=== PATIENT | male | born 1970 | race Caucasian/White ===

== ENCOUNTER 2017-07-30 21:01 | Inpatient (IN) | payer SELFPAY, OTHER, MEDICAID ==
[2017-07-30] MEDS: ONDANSETRON 4 MG INJ IV (21:26)
[2017-07-30] MEDS: MAGNESIUM SULFATE 2 GM, MULTIVITAMINS 10 ML, THIAMINE 100 MG, FOLIC ACID 1 MG in SOD CH... IV (21:33)
[2017-07-30 21:51] LABS: ADD MAN DIFF? NO
[2017-07-30 22:01] LABS: BASOPHIL # 0.1 10^3/ul (0.0-0.1); BASOPHILS % 1.8 % (0.0-2.0); EOSINOPHILS % 0.4 % (0.0-7.0); HEMATOCRIT 40.8 % (42.0-52.0); LYMPHOCYTES # 2.4 10^3/ul (0.8-2.9); LYMPHOCYTES % 42.4 % (15.0-51.0); MEAN CORPUSCULAR HEMOGLOBIN 30.8 pg (29.0-33.0); MEAN CORPUSCULAR HGB CONC 34.3 g/dl (32.0-37.0); MEAN CORPUSCULAR VOLUME 89.9 fl (82.0-101.0); MEAN PLATELET VOLUME 9.9 fl (7.4-10.4); MONOCYTE # 0.4 10^3/ul (0.3-0.9); MONOCYTES % 7.9 % (0.0-11.0); NEUTROPHIL # 2.7 10^3/ul (1.6-7.5); NEUTROPHILS % 47.3 % (39.0-77.0); PLATELET COUNT 457 10^3/UL (140-415); RED BLOOD COUNT 4.54 10^6/ul (4.70-6.10)
[2017-07-30 22:01] LABS: WHITE BLOOD COUNT 5.6 10^3/ul (4.8-10.8)
[2017-07-30 22:16] LABS: ALANINE AMINOTRANSFERASE 32 IU/L (13-69); ALBUMIN 4.2 g/dl (3.3-4.9); ALBUMIN/GLOBULIN RATIO 1.27; ALKALINE PHOSPHATASE 141 IU/L (42-121); ANION GAP 25 (8-16); ASPARTATE AMINO TRANSFERASE 44 IU/L (15-46); BLOOD UREA NITROGEN 8 mg/dl (7-20); CALCIUM 8.9 mg/dl (8.4-10.2); CARBON DIOXIDE 24 mmol/L (21-31); CHLORIDE 108 mmol/L (97-110); CREATININE 0.61 mg/dl (0.61-1.24); GLUCOSE 129 mg/dl (70-220); POTASSIUM 3.2 mmol/L (3.5-5.1); SODIUM 154 mmol/L (135-144); TOTAL PROTEIN 7.5 g/dl (6.1-8.1)
[2017-07-30 22:23] LABS: ACETAMINOPHEN < 10.0 ug/ml (10.0-30.0); ETHANOL > 300.0 mg/dl; SALICYLATE < 1.0 mg/dl (5.0-30.0)
[2017-07-30] MEDS: POTASSIUM CHLORIDE (SR) 10 MEQ TAB PO (22:30)
[2017-07-30 23:58] LABS: ADD UMIC YES; UR ASCORBIC ACID NEGATIVE (NEGATIVE); UR BACTERIA FEW /HPF (NONE SEEN); UR BILIRUBIN (Dip) NEGATIVE (NEGATIVE); UR BLOOD (Dip) NEGATIVE (NEGATIVE); UR CLARITY SLIGHTLY CLOUDY (CLEAR); UR COLOR YELLOW (YELLOW); UR GLUCOSE (Dip) NEGATIVE (NEGATIVE); UR KETONES (Dip) NEGATIVE (NEGATIVE); UR LEUKOCYTE ESTERASE (Dip) 1+ Leu/ul (NEGATIVE); UR NITRITE (Dip) NEGATIVE (NEGATIVE); UR RBC 0 /HPF (0-5); UR SPECIFIC GRAVITY (Dip) 1.013 (1.003-1.030); UR TOTAL PROTEIN (Dip) 1+ mg/dl (NEGATIVE); UR UROBILINOGEN (Dip) NEGATIVE (NEGATIVE); UR WBC 8 /HPF (0-5)
[2017-07-31 00:07] LABS: AMPHETAMINE/METHAMPHETAMINE Negative (NEGATIVE); BARBITURATES Negative (NEGATIVE); BENZODIAZEPINES Negative (NEGATIVE); CANNABINOIDS Negative (NEGATIVE); COCAINE Negative (NEGATIVE); OPIATES Negative (NEGATIVE)
[2017-07-31] MEDS ORDERED: FLUMAZENIL 0.5 MG INJ (00:11)
[2017-07-31] MEDS ORDERED: PROPOFOL 100 ML (00:23)
[2017-07-31] MEDS: DIAZEPAM 5 MG/ML SYG IV (00:23)
[2017-07-31] MEDS: PROPOFOL 100 ML IV (00:31)
[2017-07-31] MEDS ORDERED: ACETAMINOPHEN 650MG/20.3ML CUP PO (01:30)
[2017-07-31] MEDS ORDERED: LORAZEPAM 2 MG INJ IV (01:30)
[2017-07-31 02:20] LABS: ADD MAN DIFF? NO
[2017-07-31 02:21] LABS: BASOPHIL # 0.1 10^3/ul (0.0-0.1); BASOPHILS % 1.1 % (0.0-2.0); EOSINOPHILS % 0.1 % (0.0-7.0); HEMATOCRIT 32.3 % (42.0-52.0); LYMPHOCYTES # 1.1 10^3/ul (0.8-2.9); LYMPHOCYTES % 15.7 % (15.0-51.0); MEAN CORPUSCULAR HEMOGLOBIN 31.5 pg (29.0-33.0); MEAN CORPUSCULAR HGB CONC 34.1 g/dl (32.0-37.0); MEAN CORPUSCULAR VOLUME 92.6 fl (82.0-101.0); MEAN PLATELET VOLUME 10.2 fl (7.4-10.4); MONOCYTE # 0.6 10^3/ul (0.3-0.9); NEUTROPHIL # 5.3 10^3/ul (1.6-7.5); NEUTROPHILS % 74.4 % (39.0-77.0); PLATELET COUNT 374 10^3/UL (140-415); RED BLOOD COUNT 3.49 10^6/ul (4.70-6.10); RED CELL DISTRIBUTION WIDTH 16.2 % (11.5-14.5)
[2017-07-31 02:21] LABS: WHITE BLOOD COUNT 7.1 10^3/ul (4.8-10.8)
[2017-07-31] MEDS: FENTAnyl (DRIP) 1000 mcg/100mL 100 ML IV ×2 (02:28→08:25)
[2017-07-31 02:29] LABS: AADO2 Arterial 223.8 mmHg (7.0-24.0); Allen Test ACCEPTAB; Arterial Base Excess -8.7 mmol/L (-3.0-3); Arterial Blood Gas Oxygen Sat 99.5 mmHG (95.0-98.0); Arterial COHb 0.3 % (0.0-3.0); Arterial Fraction of Oxyhgb 98.6 % (93.0-99.0); Arterial HCO3 17.9 mmol/L (22.0-26.0); Arterial MetHb 0.6 % (0.0-1.5); Arterial Total Hemglobin 12.1 g/dl (12.0-18.0); Arterial pCO2 41.2 mmhg (35-45); Blood Gas Low PEEP Setting 0 cmH2O; MODE VENT - AC; Site Right Radial
[2017-07-31] MEDS: CEFTRIAXONE (40 MG/ML) IV SYG IV* (02:37)
[2017-07-31 04:04] LABS: ALANINE AMINOTRANSFERASE 34 IU/L (13-69); ALKALINE PHOSPHATASE 132 IU/L (42-121); ANION GAP 21 (8-16); ASPARTATE AMINO TRANSFERASE 41 IU/L (15-46); BLOOD UREA NITROGEN 7 mg/dl (7-20); CALCIUM 6.6 mg/dl (8.4-10.2); CARBON DIOXIDE 18 mmol/L (21-31); CHLORIDE 116 mmol/L (97-110); CREATININE 0.59 mg/dl (0.61-1.24); GLUCOSE 84 mg/dl (70-220); MAGNESIUM 2.1 mg/dl (1.7-2.5); POTASSIUM 3.1 mmol/L (3.5-5.1); SODIUM 152 mmol/L (135-144)
[2017-07-31 04:05] LABS: ALBUMIN 3.3 g/dl (3.3-4.9); ALBUMIN/GLOBULIN RATIO 1.13; TOTAL PROTEIN 6.2 g/dl (6.1-8.1)
[2017-07-31 04:10] LABS: LACTIC ACID 2.5 mmol/L (0.5-2.0)
[2017-07-31] MEDS: POTASSIUM CHLORIDE 100 ML IVPB ×2 (05:30→07:02)
[2017-07-31 06:04] LABS: HEMOGLOBIN A1C 4.9 % (0-5.9)
[2017-07-31] MEDS ORDERED: DEXTROSE 50% 50 ML SYRINGE (06:23)
[2017-07-31] MEDS ORDERED: D5W + KCL 20 MEQ 1,000 ML IV (06:30)
[2017-07-31] MEDS: DEXTROSE 50% 50 ML SYRINGE IV (06:35)
[2017-07-31] MEDS ORDERED: SUCCINYLCHOLINE CHLORIDE 100 MG/5 ML SYG IV (07:00)
[2017-07-31] MEDS ORDERED: ETOMIDATE 20 MG INJ (07:00)
[2017-07-31] MEDS: PANTOPRAZOLE 40 MG INJ IV (07:04)
[2017-07-31 07:37] LABS: CHOLESTEROL 160 mg/dl (100-200)
[2017-07-31 07:37] LABS: CHOL/HDL RATIO 1.6 RATIO; HDL CHOLESTEROL 100 mg/dl (28-71); LDL CHOLESTEROL,CALCULATED 31 mg/dl; TRIGLYCERIDES 146 mg/dl (0-149)
[2017-07-31 08:09] LABS: THYROID STIMULATING HORMONE 0.943 MIU/L (0.465-4.680)
[2017-07-31 08:30] LABS: AADO2 Arterial 55.6 mmHg (7.0-24.0); Arterial Base Excess -15.1 mmol/L (-3.0-3); Arterial Blood Gas Oxygen Sat 94.5 mmHG (95.0-98.0); Arterial COHb 0.2 % (0.0-3.0); Arterial Fraction of Oxyhgb 93.9 % (93.0-99.0); Arterial HCO3 19.7 mmol/L (22.0-26.0); Arterial MetHb 0.4 % (0.0-1.5); Arterial pCO2 100.3 mmhg (35-45); Blood Gas Low PEEP Setting 0 cmH2O; MODE VENT - AC; Site Right Brachial
[2017-07-31 09:09] LABS: ANION GAP 23 (8-16); BLOOD UREA NITROGEN 6 mg/dl (7-20); CARBON DIOXIDE 13 mmol/L (21-31); CHLORIDE 117 mmol/L (97-110); CREATININE 0.62 mg/dl (0.61-1.24); GLUCOSE 204 mg/dl (70-220); POTASSIUM 5.9 mmol/L (3.5-5.1); SODIUM 147 mmol/L (135-144)
[2017-07-31 09:18] LABS: LACTIC ACID 4.1 mmol/L (0.5-2.0)
[2017-07-31] MEDS: THIAMINE IVPB (09:46)
[2017-07-31] MEDS: FOLIC ACID IVPB (09:46)
[2017-07-31] MEDS: MULTIVITAMINS IVPB (09:46)
[2017-07-31] MEDS: SOD CHLORIDE 0.9% IVPB (09:46)
[2017-07-31 10:20] LABS: FOLATE > 20.0 ng/ml (2.8-20.0)
[2017-07-31 11:04] LABS: AADO2 Arterial 126.5 mmHg (7.0-24.0); Allen Test ACCEPTAB; Arterial Base Excess -8.4 mmol/L (-3.0-3); Arterial Blood Gas Oxygen Sat 97.9 mmHG (95.0-98.0); Arterial COHb 0.3 % (0.0-3.0); Arterial Fraction of Oxyhgb 97.3 % (93.0-99.0); Arterial HCO3 15.7 mmol/L (22.0-26.0); Arterial MetHb 0.3 % (0.0-1.5); Arterial Total Hemglobin 12.3 g/dl (12.0-18.0); Arterial pCO2 28.7 mmhg (35-45); Blood Gas Low PEEP Setting 0 cmH2O; MODE VENT - PC; Site Right Brachial
[2017-07-31 12:09] LABS: ADD UMIC YES; UR ASCORBIC ACID NEGATIVE (NEGATIVE); UR BACTERIA FEW /HPF (NONE SEEN); UR BILIRUBIN (Dip) NEGATIVE (NEGATIVE); UR BLOOD (Dip) 2+ mg/dL (NEGATIVE); UR CLARITY CLEAR (CLEAR); UR COLOR YELLOW (YELLOW); UR GLUCOSE (Dip) NEGATIVE (NEGATIVE); UR KETONES (Dip) TRACE mg/dL (NEGATIVE); UR LEUKOCYTE ESTERASE (Dip) TRACE Leu/ul (NEGATIVE); UR MUCUS FEW /HPF (NONE SEEN); UR NITRITE (Dip) NEGATIVE (NEGATIVE); UR RBC 2 /HPF (0-5); UR SPECIFIC GRAVITY (Dip) 1.011 (1.003-1.030); UR TOTAL PROTEIN (Dip) NEGATIVE (NEGATIVE); UR UROBILINOGEN (Dip) NEGATIVE (NEGATIVE); UR WBC 7 /HPF (0-5)
[2017-07-31 12:49] LABS: CREATININE,URINE RANDOM 23.99 mg/dl (20-370)
[2017-07-31 12:49] LABS: SODIUM,URINE RANDOM 117 mmol/L (30-90)
[2017-07-31] MEDS: MIDAZOLAM (DRIP) 50 mg/50 mL 50 ML IV (13:00)
[2017-07-31] MEDS: PROPOFOL 200 MG INJ IV (13:03)
[2017-07-31 13:04] LABS: ANION GAP 19 (8-16); BLOOD UREA NITROGEN 6 mg/dl (7-20); CALCIUM 6.9 mg/dl (8.4-10.2); CARBON DIOXIDE 14 mmol/L (21-31); CHLORIDE 119 mmol/L (97-110); GLUCOSE 61 mg/dl (70-220); POTASSIUM 4.3 mmol/L (3.5-5.1); SODIUM 148 mmol/L (135-144)
[2017-07-31 15:34] LABS: ANION GAP 19 (8-16); BLOOD UREA NITROGEN 7 mg/dl (7-20); CALCIUM 7.1 mg/dl (8.4-10.2); CARBON DIOXIDE 16 mmol/L (21-31); CHLORIDE 118 mmol/L (97-110); CREATININE 0.61 mg/dl (0.61-1.24); GLUCOSE 68 mg/dl (70-220); POTASSIUM 3.9 mmol/L (3.5-5.1); SODIUM 149 mmol/L (135-144)
[2017-07-31] MEDS: DEXTROSE 5% 1,000 ML IV (17:00)
[2017-07-31 17:25] LABS: AADO2 Arterial 61.6 mmHg (7.0-24.0); Allen Test ACCEPTAB; Arterial Base Excess -3.2 mmol/L (-3.0-3); Arterial Blood Gas Oxygen Sat 98.9 mmHG (95.0-98.0); Arterial COHb 0.3 % (0.0-3.0); Arterial Fraction of Oxyhgb 98.2 % (93.0-99.0); Arterial HCO3 15.6 mmol/L (22.0-26.0); Arterial MetHb 0.4 % (0.0-1.5); Arterial Total Hemglobin 11.2 g/dl (12.0-18.0); Arterial pCO2 15.3 mmhg (35-45); Blood Gas Low PEEP Setting 0 cmH2O; MODE VENT - PC; Site Left Radial
[2017-07-31 19:22] LABS: ANION GAP 15 (8-16); BLOOD UREA NITROGEN 7 mg/dl (7-20); CALCIUM 6.9 mg/dl (8.4-10.2); CARBON DIOXIDE 17 mmol/L (21-31); CHLORIDE 119 mmol/L (97-110); CREATININE 0.56 mg/dl (0.61-1.24); GLUCOSE 170 mg/dl (70-220); POTASSIUM 3.6 mmol/L (3.5-5.1); SODIUM 147 mmol/L (135-144)
[2017-07-31 19:30] LABS: LACTIC ACID 2.8 mmol/L (0.5-2.0)
[2017-07-31] MEDS: ACCU-CHEK XX (21:00)
[2017-07-31] MEDS: SODIUM CHLORIDE 0.9% 1L BAG IV* (22:04)
[2017-08-01] MEDS: ACCU-CHEK XX ×6 (01:00→21:00)
[2017-08-01 01:07] LABS: LACTIC ACID 1.5 mmol/L (0.5-2.0)
[2017-08-01] MEDS: CEFTRIAXONE (40 MG/ML) IV SYG IV* (04:40)
[2017-08-01] MEDS: PANTOPRAZOLE 40 MG INJ IV (06:00)
[2017-08-01 06:06] LABS: ADD MAN DIFF? NO
[2017-08-01 06:26] LABS: WHITE BLOOD COUNT 12.9 10^3/ul (4.8-10.8)
[2017-08-01 06:26] LABS: BASOPHIL # 0.1 10^3/ul (0.0-0.1); BASOPHILS % 0.5 % (0.0-2.0); EOSINOPHILS # 0.3 10^3/ul (0.0-0.5); HEMOGLOBIN 9.9 g/dl (14.0-18.0); LYMPHOCYTES # 1.2 10^3/ul (0.8-2.9); LYMPHOCYTES % 9.5 % (15.0-51.0); MEAN CORPUSCULAR HEMOGLOBIN 31.3 pg (29.0-33.0); MEAN CORPUSCULAR HGB CONC 34.1 g/dl (32.0-37.0); MEAN CORPUSCULAR VOLUME 91.8 fl (82.0-101.0); MEAN PLATELET VOLUME 11.2 fl (7.4-10.4); MONOCYTE # 0.9 10^3/ul (0.3-0.9); MONOCYTES % 7.1 % (0.0-11.0); NEUTROPHIL # 10.4 10^3/ul (1.6-7.5); NEUTROPHILS % 80.5 % (39.0-77.0); PLATELET COUNT 257 10^3/UL (140-415); RED BLOOD COUNT 3.16 10^6/ul (4.70-6.10); RED CELL DISTRIBUTION WIDTH 16.6 % (11.5-14.5)
[2017-08-01 06:48] LABS: LACTIC ACID 1.3 mmol/L (0.5-2.0)
[2017-08-01 06:57] LABS: MAGNESIUM 1.5 mg/dl (1.7-2.5)
[2017-08-01] MEDS: ALBUTEROL HFA 8 GM INHALER INH (06:58)
[2017-08-01] MEDS: IPRATROPIUM (HFA) 12.9 GM INHALER INH (06:58)
[2017-08-01 07:10] LABS: ALANINE AMINOTRANSFERASE 25 IU/L (13-69); ALBUMIN 2.9 g/dl (3.3-4.9); ALBUMIN/GLOBULIN RATIO 1.03; ALKALINE PHOSPHATASE 100 IU/L (42-121); ANION GAP 13 (8-16); ASPARTATE AMINO TRANSFERASE 52 IU/L (15-46); BILIRUBIN,INDIRECT 0.4 mg/dl (0-1.1); BILIRUBIN,TOTAL 0.4 mg/dl (0.2-1.3); BLOOD UREA NITROGEN 6 mg/dl (7-20); CALCIUM 6.7 mg/dl (8.4-10.2); CARBON DIOXIDE 18 mmol/L (21-31); CHLORIDE 120 mmol/L (97-110); CREATININE 0.53 mg/dl (0.61-1.24); GLUCOSE 82 mg/dl (70-220); POTASSIUM 3.5 mmol/L (3.5-5.1); SODIUM 147 mmol/L (135-144); TOTAL PROTEIN 5.7 g/dl (6.1-8.1)
[2017-08-01] MEDS: VECURONIUM 10 MG VIAL IV (07:35)
[2017-08-01 08:00] LABS: AADO2 Arterial 231.2 mmHg (7.0-24.0); Arterial Base Excess -7.5 mmol/L (-3.0-3); Arterial Blood Gas Oxygen Sat 99.3 mmHG (95.0-98.0); Arterial COHb 0 % (0.0-3.0); Arterial Fraction of Oxyhgb 98.9 % (93.0-99.0); Arterial HCO3 15.9 mmol/L (22.0-26.0); Arterial MetHb 0.4 % (0.0-1.5); Arterial Total Hemglobin 10.9 g/dl (12.0-18.0); Blood Gas Low PEEP Setting 0 cmH2O; MODE VENT - PC; Site Right Brachial
[2017-08-01] MEDS: MAGNESIUM SULFATE 2 GM/50 ML 50 ML IVPB (09:30)
[2017-08-01 10:14] LABS: IRON 76 ug/dl (35-150)
[2017-08-01 10:23] LABS: % IRON SATURATION 38 % SAT (22-52); TOTAL IRON BINDING CAPACITY 200 ug/dl (241-421)
[2017-08-01] MEDS: MIDAZOLAM (DRIP) 50 mg/50 mL 50 ML IV ×2 (10:49→17:29)
[2017-08-01] MEDS: CEFEPIME HCL (40 MG/ML) IV SYG IV* (11:30)
[2017-08-01] MEDS: MULTIVITAMINS IVPB (11:40)
[2017-08-01] MEDS: FOLIC ACID IVPB (11:40)
[2017-08-01] MEDS: THIAMINE IVPB (11:40)
[2017-08-01] MEDS: SOD CHLORIDE 0.9% IVPB (11:40)
[2017-08-01] MEDS: POTASSIUM PHOSPHATE 20 MEQ in SOD CHLORIDE 0.9% 250 ML IVPB (12:11)
[2017-08-01] MEDS: FENTAnyl (DRIP) 1000 mcg/100mL 100 ML IV (14:36)
[2017-08-01 15:12] LABS: CREATININE, RANDOM URINE 28 mg/dL (20-370); MICROALBUMIN 2.4 mg/dL; MICROALBUMIN/CREATININE RATIO 86 (<30)
[2017-08-01] MEDS: CEFEPIME 1GM/50 ML IVPB ×2 (16:14→21:54)
[2017-08-02] MEDS: FENTAnyl (DRIP) 1000 mcg/100mL 100 ML IV ×3 (00:43→23:35)
[2017-08-02] MEDS: ACCU-CHEK XX ×6 (01:00→20:47)
[2017-08-02] MEDS ORDERED: CEFTRIAXONE 1 GM/NS 50 ML IVPB (02:00)
[2017-08-02] MEDS: MIDAZOLAM (DRIP) 50 mg/50 mL 50 ML IV ×4 (02:52→22:49)
[2017-08-02] MEDS: PROPOFOL 100 ML IV ×3 (02:53→22:49)
[2017-08-02] MEDS ORDERED: PROPOFOL 100 ML IV (03:00)
[2017-08-02 05:37] LABS: ADD MAN DIFF? NO
[2017-08-02 05:43] LABS: WHITE BLOOD COUNT 9.5 10^3/ul (4.8-10.8)
[2017-08-02 05:43] LABS: BASOPHILS % 0.4 % (0.0-2.0); EOSINOPHILS # 0.6 10^3/ul (0.0-0.5); EOSINOPHILS % 6.6 % (0.0-7.0); HEMATOCRIT 28.4 % (42.0-52.0); HEMOGLOBIN 9.5 g/dl (14.0-18.0); LYMPHOCYTES % 10.3 % (15.0-51.0); MEAN CORPUSCULAR HEMOGLOBIN 30.6 pg (29.0-33.0); MEAN CORPUSCULAR HGB CONC 33.5 g/dl (32.0-37.0); MEAN CORPUSCULAR VOLUME 91.6 fl (82.0-101.0); MEAN PLATELET VOLUME 11.3 fl (7.4-10.4); MONOCYTE # 0.5 10^3/ul (0.3-0.9); MONOCYTES % 5.4 % (0.0-11.0); NEUTROPHIL # 7.3 10^3/ul (1.6-7.5); NEUTROPHILS % 76.9 % (39.0-77.0); PLATELET COUNT 208 10^3/UL (140-415); RED CELL DISTRIBUTION WIDTH 17.2 % (11.5-14.5)
[2017-08-02 06:21] LABS: ALBUMIN/GLOBULIN RATIO 0.79; ANION GAP 13 (8-16)
[2017-08-02 06:22] LABS: ALANINE AMINOTRANSFERASE 38 IU/L (13-69); ALBUMIN 2.3 g/dl (3.3-4.9); ALKALINE PHOSPHATASE 110 IU/L (42-121); ASPARTATE AMINO TRANSFERASE 71 IU/L (15-46); BILIRUBIN,INDIRECT 0.1 mg/dl (0-1.1); BILIRUBIN,TOTAL 0.1 mg/dl (0.2-1.3); BLOOD UREA NITROGEN 6 mg/dl (7-20); CARBON DIOXIDE 17 mmol/L (21-31); CHLORIDE 120 mmol/L (97-110); CREATININE 0.53 mg/dl (0.61-1.24); GLUCOSE 86 mg/dl (70-220); SODIUM 147 mmol/L (135-144); TOTAL PROTEIN 5.2 g/dl (6.1-8.1)
[2017-08-02 06:25] LABS: POTASSIUM 2.8 mmol/L (3.5-5.1)
[2017-08-02] MEDS: IPRATROPIUM (HFA) 12.9 GM INHALER INH (06:30)
[2017-08-02] MEDS: ALBUTEROL HFA 8 GM INHALER INH (06:30)
[2017-08-02 06:55] LABS: PHOSPHORUS 2.4 mg/dl (2.5-4.9)
[2017-08-02] MEDS: PANTOPRAZOLE 40 MG INJ IV (07:05)
[2017-08-02] MEDS: POTASSIUM CHLORIDE 100 ML IVPB ×2 (07:05→09:51)
[2017-08-02] MEDS: DEXTROSE 5% 250 ML IV ×5 (07:44→20:50)
[2017-08-02 08:22] LABS: AADO2 Arterial 59.1 mmHg (7.0-24.0); Allen Test ACCEPTAB; Arterial Base Excess -6.6 mmol/L (-3.0-3); Arterial Blood Gas Oxygen Sat 98.1 mmHG (95.0-98.0); Arterial COHb 0.3 % (0.0-3.0); Arterial Fraction of Oxyhgb 97.7 % (93.0-99.0); Arterial HCO3 15.9 mmol/L (22.0-26.0); Arterial MetHb 0.1 % (0.0-1.5); Arterial Total Hemglobin 10.3 g/dl (12.0-18.0); Arterial pCO2 23.1 mmhg (35-45); Blood Gas Low PEEP Setting 0 cmH2O; MODE VENT - AC; Site Right Brachial
[2017-08-02] MEDS: FOLIC ACID IVPB (09:55)
[2017-08-02] MEDS: SOD CHLORIDE 0.9% IVPB (09:55)
[2017-08-02] MEDS: THIAMINE IVPB (09:55)
[2017-08-02] MEDS: MULTIVITAMINS IVPB (09:55)
[2017-08-02] MEDS: POTASSIUM PHOSPHATE 20 MEQ in SOD CHLORIDE 0.9% 250 ML IVPB (09:55)
[2017-08-02] MEDS: CEFEPIME 1GM/50 ML IVPB ×2 (09:56→20:48)
[2017-08-02] MEDS: METHYLPREDNISOLONE 40 MG INJ IV ×2 (10:06→20:48)
[2017-08-02] MEDS: FUROSEMIDE 20 MG INJ IV ×2 (10:06→18:30)
[2017-08-02 15:46] LABS: ANION GAP 15 (8-16); BLOOD UREA NITROGEN 7 mg/dl (7-20); CALCIUM 7.1 mg/dl (8.4-10.2); CARBON DIOXIDE 16 mmol/L (21-31); CHLORIDE 120 mmol/L (97-110); CREATININE 0.61 mg/dl (0.61-1.24); GLUCOSE 89 mg/dl (70-220); POTASSIUM 4.9 mmol/L (3.5-5.1); SODIUM 146 mmol/L (135-144)
[2017-08-03] MEDS: SOD CHLORIDE 0.9% 500 ML IV (00:02)
[2017-08-03] MEDS: DEXTROSE 5% 250 ML IV ×3 (00:03→05:58)
[2017-08-03] MEDS: ACCU-CHEK XX ×6 (01:00→21:00)
[2017-08-03] MEDS: VECURONIUM 10 MG VIAL IV (03:30)
[2017-08-03] MEDS: PANTOPRAZOLE 40 MG INJ IV (05:20)
[2017-08-03] MEDS: FUROSEMIDE 20 MG INJ IV ×2 (05:21→17:58)
[2017-08-03 05:32] LABS: ADD MAN DIFF? NO
[2017-08-03 05:42] LABS: WHITE BLOOD COUNT 8.2 10^3/ul (4.8-10.8)
[2017-08-03 05:42] LABS: ABNORMAL IP MESSAGE 1; BASOPHILS % 0.1 % (0.0-2.0); HEMATOCRIT 27.1 % (42.0-52.0); HEMOGLOBIN 9.4 g/dl (14.0-18.0); LYMPHOCYTES # 0.4 10^3/ul (0.8-2.9); MEAN CORPUSCULAR HEMOGLOBIN 31.3 pg (29.0-33.0); MEAN CORPUSCULAR HGB CONC 34.7 g/dl (32.0-37.0); MEAN CORPUSCULAR VOLUME 90.3 fl (82.0-101.0); MEAN PLATELET VOLUME 11.9 fl (7.4-10.4); MONOCYTE # 0.3 10^3/ul (0.3-0.9); MONOCYTES % 3.8 % (0.0-11.0); NEUTROPHIL # 7.5 10^3/ul (1.6-7.5); NEUTROPHILS % 90.6 % (39.0-77.0); PLATELET COUNT 184 10^3/UL (140-415); POSITIVE DIFF @See below; RED CELL DISTRIBUTION WIDTH 17.1 % (11.5-14.5)
[2017-08-03] MEDS: MIDAZOLAM (DRIP) 50 mg/50 mL 50 ML IV ×2 (06:01→15:07)
[2017-08-03 06:06] LABS: ALANINE AMINOTRANSFERASE 34 IU/L (13-69); ALBUMIN 2.7 g/dl (3.3-4.9); ALBUMIN/GLOBULIN RATIO 1.03; ALKALINE PHOSPHATASE 99 IU/L (42-121); ANION GAP 14 (8-16); ASPARTATE AMINO TRANSFERASE 67 IU/L (15-46); BILIRUBIN,INDIRECT 0.1 mg/dl (0-1.1); BILIRUBIN,TOTAL 0.1 mg/dl (0.2-1.3); BLOOD UREA NITROGEN 11 mg/dl (7-20); CALCIUM 7.2 mg/dl (8.4-10.2); CARBON DIOXIDE 16 mmol/L (21-31); CHLORIDE 115 mmol/L (97-110); CREATININE 0.62 mg/dl (0.61-1.24); GLUCOSE 131 mg/dl (70-220); POTASSIUM 3.6 mmol/L (3.5-5.1); SODIUM 141 mmol/L (135-144); TOTAL PROTEIN 5.3 g/dl (6.1-8.1)
[2017-08-03 06:30] LABS: PHOSPHORUS 3.2 mg/dl (2.5-4.9)
[2017-08-03 06:30] LABS: MAGNESIUM 1.5 mg/dl (1.7-2.5)
[2017-08-03 08:00] LABS: AADO2 Arterial 63.6 mmHg (7.0-24.0); Allen Test ACCEPTAB; Arterial Base Excess -4.3 mmol/L (-3.0-3); Arterial Blood Gas Oxygen Sat 98.1 mmHG (95.0-98.0); Arterial COHb 0.3 % (0.0-3.0); Arterial Fraction of Oxyhgb 97.5 % (93.0-99.0); Arterial HCO3 17.1 mmol/L (22.0-26.0); Arterial MetHb 0.3 % (0.0-1.5); Arterial Total Hemglobin 10.4 g/dl (12.0-18.0); Arterial pCO2 21.5 mmhg (35-45); Blood Gas Low PEEP Setting 0 cmH2O; MODE VENT - AC; Site Right Radial
[2017-08-03] MEDS ORDERED: POTASSIUM CHLORIDE 20 MEQ in DEXTROSE 5% 1,000 ML IV (08:01)
[2017-08-03] MEDS: MAGNESIUM SULFATE 2 GM/50 ML 50 ML IVPB (08:41)
[2017-08-03] MEDS: METHYLPREDNISOLONE 40 MG INJ IV ×2 (08:42→21:43)
[2017-08-03] MEDS: POTASSIUM CHLORIDE 100 ML IVPB (08:42)
[2017-08-03] MEDS: CEFEPIME 1GM/50 ML IVPB ×2 (08:43→21:43)
[2017-08-03] MEDS: SOD CHLORIDE 0.9% IVPB (13:16)
[2017-08-03] MEDS: FOLIC ACID IVPB (13:16)
[2017-08-03] MEDS: MULTIVITAMINS IVPB (13:16)
[2017-08-03] MEDS: THIAMINE IVPB (13:16)
[2017-08-03] MEDS: D5W + KCL 20 MEQ 1,000 ML IV (13:17)
[2017-08-03] MEDS: FENTAnyl (DRIP) 1000 mcg/100mL 100 ML IV ×3 (13:26→23:25)
[2017-08-03] MEDS: PROPOFOL 100 ML IV ×2 (15:00→23:18)
[2017-08-03 15:05] LABS: PHOSPHORUS 2.1 mg/dl (2.5-4.9)
[2017-08-03 15:09] LABS: ANION GAP 14 (8-16); BLOOD UREA NITROGEN 12 mg/dl (7-20); CALCIUM 7.6 mg/dl (8.4-10.2); CARBON DIOXIDE 17 mmol/L (21-31); CHLORIDE 113 mmol/L (97-110); CREATININE 0.69 mg/dl (0.61-1.24); GLUCOSE 122 mg/dl (70-220); MAGNESIUM 3.5 mg/dl (1.7-2.5); POTASSIUM 4.7 mmol/L (3.5-5.1); SODIUM 139 mmol/L (135-144)
[2017-08-04] MEDS: MIDAZOLAM (DRIP) 50 mg/50 mL 50 ML IV ×2 (01:13→14:00)
[2017-08-04] MEDS: ACCU-CHEK XX ×6 (01:16→21:00)
[2017-08-04] MEDS: PANTOPRAZOLE 40 MG INJ IV (05:10)
[2017-08-04] MEDS: FUROSEMIDE 20 MG INJ IV ×2 (05:10→12:19)
[2017-08-04 05:26] LABS: ADD MAN DIFF? NO
[2017-08-04 05:28] LABS: BASOPHILS % 0.1 % (0.0-2.0); HEMOGLOBIN 10.2 g/dl (14.0-18.0); LYMPHOCYTES # 0.8 10^3/ul (0.8-2.9); LYMPHOCYTES % 5.1 % (15.0-51.0); MEAN CORPUSCULAR HEMOGLOBIN 30.5 pg (29.0-33.0); MEAN CORPUSCULAR VOLUME 89.8 fl (82.0-101.0); MEAN PLATELET VOLUME 11.4 fl (7.4-10.4); MONOCYTE # 0.9 10^3/ul (0.3-0.9); MONOCYTES % 5.7 % (0.0-11.0); NEUTROPHIL # 13.3 10^3/ul (1.6-7.5); NEUTROPHILS % 88.6 % (39.0-77.0); PLATELET COUNT 237 10^3/UL (140-415); RED BLOOD COUNT 3.34 10^6/ul (4.70-6.10); RED CELL DISTRIBUTION WIDTH 16.7 % (11.5-14.5)
[2017-08-04 05:52] LABS: ALANINE AMINOTRANSFERASE 33 IU/L (13-69); ALBUMIN 3.1 g/dl (3.3-4.9); ALBUMIN/GLOBULIN RATIO 0.96; ALKALINE PHOSPHATASE 114 IU/L (42-121); ANION GAP 12 (8-16); ASPARTATE AMINO TRANSFERASE 55 IU/L (15-46); BILIRUBIN,INDIRECT 0.3 mg/dl (0-1.1); BILIRUBIN,TOTAL 0.3 mg/dl (0.2-1.3); BLOOD UREA NITROGEN 13 mg/dl (7-20); CALCIUM 8.1 mg/dl (8.4-10.2); CARBON DIOXIDE 21 mmol/L (21-31); CHLORIDE 109 mmol/L (97-110); CREATININE 0.61 mg/dl (0.61-1.24); GLUCOSE 228 mg/dl (70-220); POTASSIUM 4.1 mmol/L (3.5-5.1); SODIUM 138 mmol/L (135-144); TOTAL PROTEIN 6.3 g/dl (6.1-8.1)
[2017-08-04 07:17] LABS: MAGNESIUM 2.3 mg/dl (1.7-2.5)
[2017-08-04 07:17] LABS: PHOSPHORUS 1.8 mg/dl (2.5-4.9)
[2017-08-04] MEDS: FENTAnyl (DRIP) 1000 mcg/100mL 100 ML IV ×2 (08:10→13:53)
[2017-08-04] MEDS: CEFEPIME 1GM/50 ML IVPB ×2 (09:31→21:55)
[2017-08-04] MEDS ORDERED: morphine 2 MG INJ IV (11:00)
[2017-08-04 11:32] LABS: Allen Test ACCEPTAB; Arterial Base Excess 0.9 mmol/L (-3.0-3); Arterial COHb 0 % (0.0-3.0); Arterial Fraction of Oxyhgb 96.6 % (93.0-99.0); Arterial HCO3 24.6 mmol/L (22.0-26.0); Arterial MetHb 0.4 % (0.0-1.5); Arterial Total Hemglobin 12.3 g/dl (12.0-18.0); MODE VENT - AC; Site Right Radial
[2017-08-04] MEDS: PROPOFOL 100 ML IV (12:06)
[2017-08-04] MEDS ORDERED: ARTIFICIAL TEARS 15 ML OPH BOTH EYES (18:00)
[2017-08-04] MEDS: FUROSEMIDE 40 MG INJ IV (18:52)
[2017-08-05] MEDS: ACCU-CHEK XX ×6 (01:35→21:00)
[2017-08-05] MEDS: PROPOFOL 100 ML IV (03:00)
[2017-08-05] MEDS: FENTAnyl (DRIP) 1000 mcg/100mL 100 ML IV ×2 (03:56→22:25)
[2017-08-05] MEDS: MIDAZOLAM (DRIP) 50 mg/50 mL 50 ML IV ×2 (04:55→22:02)
[2017-08-05] MEDS: FUROSEMIDE 40 MG INJ IV (05:10)
[2017-08-05] MEDS: PANTOPRAZOLE 40 MG INJ IV (05:10)
[2017-08-05 05:49] LABS: ADD MAN DIFF? NO
[2017-08-05] MEDS: SCOPOLAMINE 1.5 MG PATCH TRANSDERM (06:12)
[2017-08-05 06:23] LABS: ALANINE AMINOTRANSFERASE 40 IU/L (13-69); ALBUMIN 3.7 g/dl (3.3-4.9); ALBUMIN/GLOBULIN RATIO 1.19; ALKALINE PHOSPHATASE 107 IU/L (42-121); ANION GAP 18 (8-16); ASPARTATE AMINO TRANSFERASE 69 IU/L (15-46); BILIRUBIN,INDIRECT 0.3 mg/dl (0-1.1); BILIRUBIN,TOTAL 0.3 mg/dl (0.2-1.3); BLOOD UREA NITROGEN 19 mg/dl (7-20); CALCIUM 8.5 mg/dl (8.4-10.2); CARBON DIOXIDE 29 mmol/L (21-31); CHLORIDE 104 mmol/L (97-110); CREATININE 0.63 mg/dl (0.61-1.24); GLUCOSE 118 mg/dl (70-220); POTASSIUM 3.5 mmol/L (3.5-5.1); SODIUM 147 mmol/L (135-144); TOTAL PROTEIN 6.8 g/dl (6.1-8.1)
[2017-08-05 06:32] LABS: MAGNESIUM 1.9 mg/dl (1.7-2.5)
[2017-08-05 07:00] LABS: BASOPHILS % 0.1 % (0.0-2.0); EOSINOPHILS # 0.2 10^3/ul (0.0-0.5); EOSINOPHILS % 1.6 % (0.0-7.0); HEMOGLOBIN 10.4 g/dl (14.0-18.0); LYMPHOCYTES % 6.9 % (15.0-51.0); MEAN CORPUSCULAR HEMOGLOBIN 31.6 pg (29.0-33.0); MEAN CORPUSCULAR HGB CONC 34.7 g/dl (32.0-37.0); MEAN CORPUSCULAR VOLUME 91.2 fl (82.0-101.0); MONOCYTE # 1.1 10^3/ul (0.3-0.9); MONOCYTES % 7.9 % (0.0-11.0); NEUTROPHIL # 11.7 10^3/ul (1.6-7.5); NEUTROPHILS % 82.8 % (39.0-77.0); PLATELET COUNT 210 10^3/UL (140-415); RED BLOOD COUNT 3.29 10^6/ul (4.70-6.10); RED CELL DISTRIBUTION WIDTH 16.4 % (11.5-14.5)
[2017-08-05 07:00] LABS: WHITE BLOOD COUNT 14.2 10^3/ul (4.8-10.8)
[2017-08-05] MEDS: CEFEPIME 1GM/50 ML IVPB ×2 (08:33→21:35)
[2017-08-05] MEDS ORDERED: VANCOMYCIN IV PER PHARMACY XX (09:00)
[2017-08-05] MEDS: SOD CHLORIDE 0.9% 250 ML IV (10:30)
[2017-08-05] MEDS: VANCOMYCIN 500MG/NS (PMX) 100 ML IVPB (12:21)
[2017-08-05] MEDS ORDERED: METOLAZONE 5 MG TAB NGT (14:00)
[2017-08-05] MEDS: HALOPERIDOL 5 MG INJ IV (14:34)
[2017-08-05] MEDS: CHLORDIAZEPOXIDE 5 MG CAP PO ×2 (14:34→22:00)
[2017-08-05] MEDS: DEXTROSE 5% 1,000 ML IV (15:54)
[2017-08-05] MEDS ORDERED: GLUCOSE GEL 15 GRAM TUBE PO ×2 (18:30)
[2017-08-05] MEDS ORDERED: DEXTROSE 50% 50 ML SYRINGE IV (18:30)
[2017-08-05] MEDS ORDERED: GLUCOSE GEL 15 GRAM TUBE BUCCAL (18:30)
[2017-08-05] MEDS ORDERED: GLUCAGON 1 MG INJ IM (18:30)
[2017-08-05] MEDS: INSULIN ASPART [NOVOLOG] 3 ML PEN SC (21:00)
[2017-08-05] MEDS: SOD CHLORIDE 0.9% 1,000 ML IV (21:36)
[2017-08-05] MEDS: DEXTROSE 5% IVPB (23:20)
[2017-08-05] MEDS: VANCOMYCIN IVPB (23:20)
[2017-08-06] MEDS: ACCU-CHEK XX ×7 (01:00→21:00)
[2017-08-06] MEDS: PROPOFOL 100 ML IV ×4 (03:00→22:18)
[2017-08-06 05:27] LABS: ABNORMAL IP MESSAGE 1; HEMATOCRIT 25.7 % (42.0-52.0); HEMOGLOBIN 8.5 g/dl (14.0-18.0); MEAN CORPUSCULAR HEMOGLOBIN 31.7 pg (29.0-33.0); MEAN CORPUSCULAR HGB CONC 33.1 g/dl (32.0-37.0); MEAN CORPUSCULAR VOLUME 95.9 fl (82.0-101.0); MEAN PLATELET VOLUME 12.9 fl (7.4-10.4); POSITIVE DIFF @See below; RED BLOOD COUNT 2.68 10^6/ul (4.70-6.10); RED CELL DISTRIBUTION WIDTH 17.2 % (11.5-14.5)
[2017-08-06 05:27] LABS: WHITE BLOOD COUNT 8.1 10^3/ul (4.8-10.8)
[2017-08-06 05:28] LABS: PLATELET COUNT 139 10^3/UL (140-415)
[2017-08-06] MEDS: PANTOPRAZOLE 40 MG INJ IV (05:28)
[2017-08-06 05:29] LABS: ADD MAN DIFF? YES
[2017-08-06 06:37] LABS: BLOOD UREA NITROGEN 20 mg/dl (7-20)
[2017-08-06] MEDS: FENTAnyl (DRIP) 1000 mcg/100mL 100 ML IV ×3 (06:46→23:30)
[2017-08-06 07:01] LABS: MAGNESIUM 1.6 mg/dl (1.7-2.5)
[2017-08-06] MEDS: INSULIN ASPART [NOVOLOG] 3 ML PEN SC ×5 (07:35→20:54)
[2017-08-06 07:57] LABS: ANION GAP 15 (8-16); BLOOD UREA NITROGEN 20 mg/dl (7-20); CALCIUM 7.5 mg/dl (8.4-10.2); CARBON DIOXIDE 20 mmol/L (21-31); CHLORIDE 116 mmol/L (97-110); CREATININE 0.58 mg/dl (0.61-1.24); GLUCOSE 146 mg/dl (70-220); POTASSIUM 3.7 mmol/L (3.5-5.1); SODIUM 147 mmol/L (135-144)
[2017-08-06 08:25] LABS: BAND NEUTROPHILS #M 0.5 10^3/ul (0.0-0.6); BAND NEUTROPHILS % (M) 7 % (0-4); EOSINOPHILS % (M) 4 % (0-7); GIANT THROMBO% (M) 2 % (0-0); LYMPHOCYTES #M 0.3 10^3/ul (0.8-2.9); LYMPHOCYTES % (M) 4 % (15-51); MONOCYTE #M 1.1 10^3/ul (0.3-0.9); MONOCYTES % (M) 14 % (0-11); PLATELET ESTIMATE DECREASED; POIKILOCYTOSIS 3+ (0-0); SEG NEUT #M 5.8 10^3/ul (1.6-7.5); SEGMENTED NEUTROPHILS (M) % 71 % (39-77); SMUDGE%M 5 % (0-0)
[2017-08-06] MEDS: DEXMEDETOMIDINE HCL 200 MCG in SOD CHLORIDE 0.9% 48 ML IV ×2 (09:30→19:01)
[2017-08-06] MEDS ORDERED: MAGNESIUM SULFATE 2 GM/50 ML 50 ML IVPB (09:30)
[2017-08-06] MEDS: CEFEPIME 1GM/50 ML IVPB ×2 (09:33→20:51)
[2017-08-06] MEDS: MAGNESIUM SULFATE 2 GM/50 ML 50 ML IVPB (09:33)
[2017-08-06] MEDS: CHLORDIAZEPOXIDE 5 MG CAP PO ×3 (09:34→20:51)
[2017-08-06] MEDS: DOCUSATE SODIUM 10 MG/ML (10ML CUP) NGT (11:03)
[2017-08-06 11:23] LABS: AADO2 Arterial 352.3 mmHg (7.0-24.0); Allen Test ACCEPTAB; Arterial Base Excess -3.3 mmol/L (-3.0-3); Arterial Blood Gas Oxygen Sat 94.2 mmHG (95.0-98.0); Arterial COHb 0.3 % (0.0-3.0); Arterial Fraction of Oxyhgb 93.6 % (93.0-99.0); Arterial HCO3 20.6 mmol/L (22.0-26.0); Arterial MetHb 0.3 % (0.0-1.5); Arterial Total Hemglobin 11.5 g/dl (12.0-18.0); Blood Gas Low PEEP Setting 0 cmH2O; MODE VENT - AC; Site Left Radial
[2017-08-06] MEDS ORDERED: INSULIN ASPART [NOVOLOG] 3 ML PEN SC (11:30)
[2017-08-06] MEDS: DEXTROSE 5% IVPB ×2 (13:10→23:30)
[2017-08-06] MEDS: SENNA TAB PO (13:10)
[2017-08-06] MEDS: VANCOMYCIN IVPB ×2 (13:10→23:30)
[2017-08-06] MEDS: IPRATROPIUM (HFA) 12.9 GM INHALER INH ×3 (15:18→21:47)
[2017-08-06] MEDS: ALBUTEROL HFA 8 GM INHALER INH ×3 (15:19→21:48)
[2017-08-06] MEDS ORDERED: ALBUTEROL HFA 8 GM INHALER INH (17:00)
[2017-08-06] MEDS ORDERED: VECURONIUM 100 MG in DEXTROSE 5% 100 ML IV (17:30)
[2017-08-06] MEDS: MIDAZOLAM (DRIP) 50 mg/50 mL 50 ML IV ×2 (17:45→23:17)
[2017-08-06 18:39] LABS: AADO2 Arterial 497.6 mmHg (7.0-24.0); Allen Test ACCEPTAB; Arterial Base Excess -5.8 mmol/L (-3.0-3); Arterial Blood Gas Oxygen Sat 99.1 mmHG (95.0-98.0); Arterial COHb 0.2 % (0.0-3.0); Arterial Fraction of Oxyhgb 98.4 % (93.0-99.0); Arterial HCO3 18.1 mmol/L (22.0-26.0); Arterial MetHb 0.5 % (0.0-1.5); Arterial Total Hemglobin 9.2 g/dl (12.0-18.0); Arterial pCO2 29.9 mmhg (35-45); MODE VENT - AC; Site Left Radial
[2017-08-06 22:47] LABS: VANCOMYCIN,TROUGH 17.4 ug/ml (10.0-20.0)
[2017-08-07] MEDS: INSULIN ASPART [NOVOLOG] 3 ML PEN SC ×6 (01:00→21:00)
[2017-08-07] MEDS: ACCU-CHEK XX ×3 (01:45→05:34)
[2017-08-07] MEDS: DEXTROSE 5% IVPB ×2 (01:46→14:00)
[2017-08-07] MEDS: VANCOMYCIN IVPB ×2 (01:46→14:00)
[2017-08-07] MEDS: ALBUTEROL HFA 8 GM INHALER INH ×5 (01:50→21:20)
[2017-08-07] MEDS: IPRATROPIUM (HFA) 12.9 GM INHALER INH ×5 (01:50→21:20)
[2017-08-07] MEDS ORDERED: ACCU-CHEK XX (02:00)
[2017-08-07] MEDS: PANTOPRAZOLE 40 MG INJ IV (05:33)
[2017-08-07 06:03] LABS: ADD MAN DIFF? NO
[2017-08-07 06:40] LABS: ANION GAP 13 (8-16); BLOOD UREA NITROGEN 27 mg/dl (7-20); CALCIUM 8.6 mg/dl (8.4-10.2); CARBON DIOXIDE 24 mmol/L (21-31); CHLORIDE 113 mmol/L (97-110); CREATININE 0.79 mg/dl (0.61-1.24); GLUCOSE 135 mg/dl (70-220); PHOSPHORUS 3.6 mg/dl (2.5-4.9); POTASSIUM 3.8 mmol/L (3.5-5.1); SODIUM 146 mmol/L (135-144)
[2017-08-07 06:46] LABS: WHITE BLOOD COUNT 14.8 10^3/ul (4.8-10.8)
[2017-08-07 06:46] LABS: ABNORMAL IP MESSAGE 1; BASOPHILS % 0.2 % (0.0-2.0); EOSINOPHILS # 0.2 10^3/ul (0.0-0.5); EOSINOPHILS % 1.6 % (0.0-7.0); HEMATOCRIT 27.5 % (42.0-52.0); HEMOGLOBIN 8.9 g/dl (14.0-18.0); LYMPHOCYTES # 1.3 10^3/ul (0.8-2.9); MEAN CORPUSCULAR HEMOGLOBIN 30.7 pg (29.0-33.0); MEAN CORPUSCULAR HGB CONC 32.4 g/dl (32.0-37.0); MEAN CORPUSCULAR VOLUME 94.8 fl (82.0-101.0); MEAN PLATELET VOLUME 12.9 fl (7.4-10.4); MONOCYTE # 1.8 10^3/ul (0.3-0.9); MONOCYTES % 12.4 % (0.0-11.0); NEUTROPHIL # 11.3 10^3/ul (1.6-7.5); NEUTROPHILS % 76.3 % (39.0-77.0); POSITIVE DIFF @See below; RED CELL DISTRIBUTION WIDTH 17.5 % (11.5-14.5)
[2017-08-07 06:55] LABS: PLATELET COUNT 196 10^3/UL (140-415)
[2017-08-07 07:00] LABS: AADO2 Arterial 578.4 mmHg (7.0-24.0); Allen Test ACCEPTAB; Arterial Base Excess -5.6 mmol/L (-3.0-3); Arterial COHb 0.1 % (0.0-3.0); Arterial Fraction of Oxyhgb 95.4 % (93.0-99.0); Arterial HCO3 20.4 mmol/L (22.0-26.0); Arterial MetHb 0.5 % (0.0-1.5); Arterial Total Hemglobin 8.8 g/dl (12.0-18.0); Arterial pCO2 41.9 mmhg (35-45); MODE VENT - AC; Site Right Radial
[2017-08-07 07:02] LABS: MAGNESIUM 2.9 mg/dl (1.7-2.5)
[2017-08-07] MEDS: VECURONIUM 100 MG in DEXTROSE 5% 100 ML IV (07:02)
[2017-08-07] MEDS: CEFEPIME 1GM/50 ML IVPB ×2 (09:05→20:35)
[2017-08-07] MEDS: DOCUSATE SODIUM 10 MG/ML (10ML CUP) NGT (09:05)
[2017-08-07] MEDS: ENOXAPARIN 30 MG/0.3 ML SYG SC (09:13)
[2017-08-07] MEDS: SENNA TAB PO (09:14)
[2017-08-07] MEDS: CHLORDIAZEPOXIDE 5 MG CAP PO ×3 (09:20→20:35)
[2017-08-07] MEDS: ALBUMIN HUMAN 25% 100 ML IV ×2 (09:20→16:08)
[2017-08-07] MEDS: FENTAnyl (DRIP) 1000 mcg/100mL 100 ML IV ×2 (09:57→21:36)
[2017-08-07 10:35] LABS: AADO2 Arterial 467.8 mmHg (7.0-24.0); Allen Test ACCEPTAB; Arterial Blood Gas Oxygen Sat 88.6 mmHG (95.0-98.0); Arterial COHb 0.3 % (0.0-3.0); Arterial HCO3 21.8 mmol/L (22.0-26.0); Arterial MetHb 0.4 % (0.0-1.5); Arterial Total Hemglobin 8.4 g/dl (12.0-18.0); Arterial pCO2 42.9 mmhg (35-45); Blood Gas PS 14; MODE VENT PC SIMV; Site Left Radial
[2017-08-07] MEDS: MIDAZOLAM (DRIP) 50 mg/50 mL 50 ML IV ×2 (10:55→21:36)
[2017-08-07] MEDS: PROPOFOL 100 ML IV ×2 (15:00→19:58)
[2017-08-07] MEDS: FUROSEMIDE 40 MG INJ IV (19:56)
[2017-08-08] MEDS: ALBUMIN HUMAN 25% 100 ML IV (00:34)
[2017-08-08] MEDS: INSULIN ASPART [NOVOLOG] 3 ML PEN SC ×6 (00:50→21:00)
[2017-08-08] MEDS: IPRATROPIUM (HFA) 12.9 GM INHALER INH ×5 (01:00→20:12)
[2017-08-08] MEDS: ALBUTEROL HFA 8 GM INHALER INH ×5 (01:00→20:12)
[2017-08-08] MEDS: ACCU-CHEK XX (02:00)
[2017-08-08] MEDS: DEXTROSE 5% IVPB ×2 (02:14→14:37)
[2017-08-08] MEDS: VANCOMYCIN IVPB ×2 (02:14→14:37)
[2017-08-08 05:25] LABS: WHITE BLOOD COUNT 17.9 10^3/ul (4.8-10.8)
[2017-08-08 05:25] LABS: ABNORMAL IP MESSAGE 1; HEMATOCRIT 27.6 % (42.0-52.0); HEMOGLOBIN 8.7 g/dl (14.0-18.0); MEAN CORPUSCULAR HEMOGLOBIN 31.4 pg (29.0-33.0); MEAN CORPUSCULAR HGB CONC 31.5 g/dl (32.0-37.0); MEAN CORPUSCULAR VOLUME 99.6 fl (82.0-101.0); MEAN PLATELET VOLUME 12.3 fl (7.4-10.4); NUCLEATED RED BLOOD CELLS% 0.1 /100WBC (0.0-0.0); PLATELET COUNT 227 10^3/UL (140-415); POSITIVE DIFF @See below; RED BLOOD COUNT 2.77 10^6/ul (4.70-6.10); RED CELL DISTRIBUTION WIDTH 17.5 % (11.5-14.5)
[2017-08-08 05:35] LABS: ADD MAN DIFF? YES
[2017-08-08 05:58] LABS: ANION GAP 20 (8-16); BLOOD UREA NITROGEN 37 mg/dl (7-20); CALCIUM 8.6 mg/dl (8.4-10.2); CARBON DIOXIDE 21 mmol/L (21-31); CHLORIDE 110 mmol/L (97-110); CREATININE 1.38 mg/dl (0.61-1.24); GLUCOSE 187 mg/dl (70-220); MAGNESIUM 2.5 mg/dl (1.7-2.5); PHOSPHORUS 5.6 mg/dl (2.5-4.9); POTASSIUM 3.5 mmol/L (3.5-5.1); SODIUM 147 mmol/L (135-144)
[2017-08-08] MEDS: PANTOPRAZOLE 40 MG INJ IV (06:04)
[2017-08-08] MEDS: SOD CHLORIDE 0.45% 1,000 ML IV ×2 (07:09→20:01)
[2017-08-08 07:18] LABS: ACANTHOCYTES 1+ (0-0); BAND NEUTROPHILS #M 0.8 10^3/ul (0.0-0.6); BAND NEUTROPHILS % (M) 5 % (0-4); EOSINOPHILS % (M) 1 % (0-7); ERYTHROBLAST% (NRBC) (M) 1 % (0-0); GIANT THROMBO% (M) 3 % (0-0); LYMPHOCYTES % (M) 6 % (15-51); MONOCYTE #M 1.4 10^3/ul (0.3-0.9); MONOCYTES % (M) 8 % (0-11); PLATELET ESTIMATE NORMAL; POIKILOCYTOSIS 1+ (0-0); SEG NEUT #M 14.5 10^3/ul (1.6-7.5); SEGMENTED NEUTROPHILS (M) % 80 % (39-77); SMUDGE%M 5 % (0-0)
[2017-08-08 08:20] LABS: AADO2 Arterial 484.4 mmHg (7.0-24.0); Arterial Base Excess -12.9 mmol/L (-3.0-3); Arterial Blood Gas Oxygen Sat 82.3 mmHG (95.0-98.0); Arterial COHb 0.5 % (0.0-3.0); Arterial Fraction of Oxyhgb 81.6 % (93.0-99.0); Arterial MetHb 0.3 % (0.0-1.5); Arterial pCO2 92.4 mmhg (35-45); Blood Gas PS 14; MODE VENT - PC; Site Right Brachial
[2017-08-08] MEDS: DOCUSATE SODIUM 10 MG/ML (10ML CUP) NGT (09:00)
[2017-08-08] MEDS: MIDAZOLAM (DRIP) 50 mg/50 mL 50 ML IV ×2 (09:21→18:10)
[2017-08-08] MEDS: FENTAnyl (DRIP) 1000 mcg/100mL 100 ML IV ×2 (09:21→21:31)
[2017-08-08] MEDS: ENOXAPARIN 30 MG/0.3 ML SYG SC (09:24)
[2017-08-08] MEDS: ARTIFICIAL TEARS 15 ML OPH BOTH EYES ×3 (09:25→20:04)
[2017-08-08 10:43] LABS: Arterial Base Excess -11.4 mmol/L (-3.0-3); Arterial Blood Gas Oxygen Sat 96.1 mmHG (95.0-98.0); Arterial COHb 0.3 % (0.0-3.0); Arterial Fraction of Oxyhgb 95.4 % (93.0-99.0); Arterial HCO3 17.2 mmol/L (22.0-26.0); Arterial MetHb 0.4 % (0.0-1.5); Arterial Total Hemglobin 9.7 g/dl (12.0-18.0); Arterial pCO2 51.8 mmhg (35-45); MODE VENT - AC; Site Right Brachial
[2017-08-08] MEDS: OCULAR LUBRICANT 3.5 GM OPH OINT BOTH EYES ×3 (11:00→20:03)
[2017-08-08 15:33] LABS: AADO2 Arterial 468.7 mmHg (7.0-24.0); Allen Test ACCEPTAB; Arterial Base Excess -11.5 mmol/L (-3.0-3); Arterial Blood Gas Oxygen Sat 97.9 mmHG (95.0-98.0); Arterial COHb 0.1 % (0.0-3.0); Arterial Fraction of Oxyhgb 97.4 % (93.0-99.0); Arterial HCO3 16.5 mmol/L (22.0-26.0); Arterial MetHb 0.4 % (0.0-1.5); Arterial Total Hemglobin 9.6 g/dl (12.0-18.0); Arterial pCO2 46.1 mmhg (35-45); MODE VENT - AC; Site Right Radial
[2017-08-08] MEDS: LIDOCAINE 1% (MPF) 5 ML VIAL SC (17:50)
[2017-08-08] MEDS: PROPOFOL 100 ML IV (18:10)
[2017-08-08] MEDS: CEFEPIME 1GM/50 ML IVPB (21:11)
[2017-08-09] MEDS: DEXTROSE 50% 50 ML SYRINGE IV (00:57)
[2017-08-09] MEDS: INSULIN ASPART [NOVOLOG] 3 ML PEN SC ×6 (01:00→21:10)
[2017-08-09] MEDS: ALBUTEROL HFA 8 GM INHALER INH ×6 (01:14→19:43)
[2017-08-09] MEDS: IPRATROPIUM (HFA) 12.9 GM INHALER INH ×6 (01:14→19:43)
[2017-08-09] MEDS: ACCU-CHEK XX (01:15)
[2017-08-09] MEDS: DEXTROSE 5%-0.45% NACL 1,000 ML IV (01:32)
[2017-08-09] MEDS: PROPOFOL 100 ML IV ×2 (02:02→15:00)
[2017-08-09] MEDS: SCOPOLAMINE 1.5 MG PATCH TRANSDERM (03:06)
[2017-08-09] MEDS: ARTIFICIAL TEARS 15 ML OPH BOTH EYES ×4 (03:07→21:06)
[2017-08-09] MEDS: OCULAR LUBRICANT 3.5 GM OPH OINT BOTH EYES ×4 (03:07→21:06)
[2017-08-09] MEDS: MIDAZOLAM (DRIP) 50 mg/50 mL 50 ML IV ×5 (03:14→23:00)
[2017-08-09] MEDS: VECURONIUM 100 MG in DEXTROSE 5% 100 ML IV (04:57)
[2017-08-09] MEDS: PANTOPRAZOLE 40 MG INJ IV (05:10)
[2017-08-09 05:13] LABS: WHITE BLOOD COUNT 13.9 10^3/ul (4.8-10.8)
[2017-08-09 05:13] LABS: HEMATOCRIT 26.8 % (42.0-52.0); HEMOGLOBIN 8.5 g/dl (14.0-18.0); MEAN CORPUSCULAR HEMOGLOBIN 30.7 pg (29.0-33.0); MEAN CORPUSCULAR HGB CONC 31.7 g/dl (32.0-37.0); MEAN CORPUSCULAR VOLUME 96.8 fl (82.0-101.0); MEAN PLATELET VOLUME 12.5 fl (7.4-10.4); NUCLEATED RED BLOOD CELLS% 0.1 /100WBC (0.0-0.0); PLATELET COUNT 136 10^3/UL (140-415); POSITIVE DIFF @See below; RED BLOOD COUNT 2.77 10^6/ul (4.70-6.10); RED CELL DISTRIBUTION WIDTH 17.1 % (11.5-14.5)
[2017-08-09 05:17] LABS: ADD MAN DIFF? YES
[2017-08-09 05:40] LABS: ANION GAP 17 (8-16); BLOOD UREA NITROGEN 39 mg/dl (7-20); CARBON DIOXIDE 17 mmol/L (21-31); CHLORIDE 105 mmol/L (97-110); CREATININE 1.86 mg/dl (0.61-1.24); GLUCOSE 166 mg/dl (70-220); MAGNESIUM 2.2 mg/dl (1.7-2.5); PHOSPHORUS 4.8 mg/dl (2.5-4.9); POTASSIUM 3.5 mmol/L (3.5-5.1); SODIUM 135 mmol/L (135-144)
[2017-08-09] MEDS: FENTAnyl (DRIP) 1000 mcg/100mL 100 ML IV ×2 (06:31→16:01)
[2017-08-09 06:43] LABS: ANISOCYTOSIS 1+ (0-0); BAND NEUTROPHILS #M 1.9 10^3/ul (0.0-0.6); BAND NEUTROPHILS % (M) 14 % (0-4); BURR CELLS 3+ (0-0); EOSINOPHILS % (M) 3 % (0-7); GIANT THROMBO% (M) 1 % (0-0); LYMPHOCYTES #M 0.2 10^3/ul (0.8-2.9); LYMPHOCYTES % (M) 2 % (15-51); MONOCYTE #M 0.9 10^3/ul (0.3-0.9); MONOCYTES % (M) 7 % (0-11); PLATELET ESTIMATE NORMAL; POIKILOCYTOSIS 3+ (0-0); POLYCHROMASIA 1+ (0-0); SEG NEUT #M 10.6 10^3/ul (1.6-7.5); SEGMENTED NEUTROPHILS (M) % 74 % (39-77); SMUDGE%M 5 % (0-0)
[2017-08-09] MEDS: DEXTROSE 5%-0.9% NACL 1,000 ML IV (06:54)
[2017-08-09 07:22] LABS: AADO2 Arterial 361.1 mmHg (7.0-24.0); Allen Test ACCEPTAB; Arterial Base Excess -14.3 mmol/L (-3.0-3); Arterial Blood Gas Oxygen Sat 93.2 mmHG (95.0-98.0); Arterial COHb 0.1 % (0.0-3.0); Arterial Fraction of Oxyhgb 92.5 % (93.0-99.0); Arterial HCO3 15.3 mmol/L (22.0-26.0); Arterial MetHb 0.6 % (0.0-1.5); Arterial Total Hemglobin 9.9 g/dl (12.0-18.0); Arterial pCO2 53.4 mmhg (35-45); MODE VENT - AC; Site Left Radial
[2017-08-09] MEDS: NA BICARBONATE 8.4% 50 ML SYG IV (08:43)
[2017-08-09] MEDS: DOCUSATE SODIUM 10 MG/ML (10ML CUP) NGT (08:55)
[2017-08-09] MEDS: ENOXAPARIN 30 MG/0.3 ML SYG SC (08:56)
[2017-08-09] MEDS ORDERED: SODIUM BICARBONATE (IV ADD) 100 MEQ in DEXTROSE 5%-0.45% NACL 900 ML IV (09:00)
[2017-08-09] MEDS: NA PHOSPHATE/BIPHOS 133 ML ENEMA PR (09:03)
[2017-08-09] MEDS: POLYETHYLENE GLYCOL 17 GM PACKET NGT (09:04)
[2017-08-09] MEDS: SOD CHLORIDE 0.9% 500 ML IV (10:31)
[2017-08-09] MEDS: SODIUM BICARBONATE (IV ADD) 100 MEQ in DEXTROSE 5%-0.45% NACL 900 ML IV (12:46)
[2017-08-09 14:21] LABS: AADO2 Arterial 423.1 mmHg (7.0-24.0); Allen Test ACCEPTAB; Arterial Base Excess -7.2 mmol/L (-3.0-3); Arterial HCO3 21.3 mmol/L (22.0-26.0); Arterial pCO2 55.2 mmhg (35-45); MODE VENT - PC; Site Right Radial
[2017-08-09] MEDS: FUROSEMIDE 40 MG INJ IV (15:52)
[2017-08-09] MEDS: BISACODYL 10 MG SUPP PR (17:02)
[2017-08-09] MEDS: CEFEPIME 1GM/50 ML IVPB (21:06)
[2017-08-09] MEDS ORDERED: ALBUMIN HUMAN 25% 100 ML (22:54)
[2017-08-09] MEDS: ALBUMIN HUMAN 25% 100 ML IV (23:00)
[2017-08-09] MEDS: METOCLOPRAMIDE 10 MG INJ IV (23:00)
[2017-08-10] MEDS ORDERED: METOLAZONE 2.5 MG TAB PO (00:30)
[2017-08-10] MEDS: METOLAZONE 2.5 MG TAB NGT (00:48)
[2017-08-10] MEDS: SODIUM BICARBONATE (IV ADD) 100 MEQ in DEXTROSE 5%-0.45% NACL 900 ML IV ×2 (00:51→02:56)
[2017-08-10] MEDS: IPRATROPIUM (HFA) 12.9 GM INHALER INH ×6 (01:07→21:22)
[2017-08-10] MEDS: ALBUTEROL HFA 8 GM INHALER INH ×6 (01:07→21:22)
[2017-08-10] MEDS: ACCU-CHEK XX (01:10)
[2017-08-10] MEDS: INSULIN ASPART [NOVOLOG] 3 ML PEN SC ×6 (01:14→21:00)
[2017-08-10] MEDS: BUMETANIDE 1 MG INJ IV (01:21)
[2017-08-10] MEDS: ALTEPLASE (CATHFLO) 2 MG INJ CATHETER (01:58)
[2017-08-10] MEDS: PROPOFOL 100 ML IV ×2 (02:32→15:00)
[2017-08-10] MEDS: OCULAR LUBRICANT 3.5 GM OPH OINT BOTH EYES ×4 (02:32→21:05)
[2017-08-10] MEDS: ARTIFICIAL TEARS 15 ML OPH BOTH EYES ×4 (02:33→21:05)
[2017-08-10] MEDS: FENTAnyl (DRIP) 1000 mcg/100mL 100 ML IV ×2 (04:11→14:23)
[2017-08-10] MEDS: MIDAZOLAM (DRIP) 50 mg/50 mL 50 ML IV ×4 (04:43→20:17)
[2017-08-10 05:21] LABS: ABNORMAL IP MESSAGE 1; HEMATOCRIT 20.5 % (42.0-52.0); MEAN CORPUSCULAR HEMOGLOBIN 30.8 pg (29.0-33.0); MEAN CORPUSCULAR HGB CONC 33.7 g/dl (32.0-37.0); MEAN CORPUSCULAR VOLUME 91.5 fl (82.0-101.0); MEAN PLATELET VOLUME 13.2 fl (7.4-10.4); PLATELET COUNT 83 10^3/UL (140-415); POSITIVE DIFF @See below; RED BLOOD COUNT 2.24 10^6/ul (4.70-6.10); RED CELL DISTRIBUTION WIDTH 16.7 % (11.5-14.5)
[2017-08-10 05:27] LABS: ADD MAN DIFF? YES; HEMOGLOBIN 6.9 g/dl (14.0-18.0)
[2017-08-10 05:48] LABS: ANION GAP 14 (8-16); BLOOD UREA NITROGEN 41 mg/dl (7-20); CALCIUM 7.4 mg/dl (8.4-10.2); CARBON DIOXIDE 29 mmol/L (21-31); CHLORIDE 103 mmol/L (97-110); CREATININE 2.17 mg/dl (0.61-1.24); GLUCOSE 296 mg/dl (70-220); MAGNESIUM 1.8 mg/dl (1.7-2.5); PHOSPHORUS 3.8 mg/dl (2.5-4.9); SODIUM 143 mmol/L (135-144)
[2017-08-10 05:54] LABS: POTASSIUM 2.6 mmol/L (3.5-5.1)
[2017-08-10 06:02] LABS: VANCOMYCIN,RANDOM 24.2 ug/ml
[2017-08-10] MEDS: PANTOPRAZOLE 40 MG INJ IV (06:11)
[2017-08-10] MEDS: POTASSIUM CHLORIDE 50 ML IVPB ×2 (06:15→09:07)
[2017-08-10] MEDS: VECURONIUM 100 MG in DEXTROSE 5% 100 ML IV (06:21)
[2017-08-10] MEDS: DOCUSATE SODIUM 10 MG/ML (10ML CUP) NGT (09:00)
[2017-08-10] MEDS: NA PHOSPHATE/BIPHOS 133 ML ENEMA PR (09:00)
[2017-08-10] MEDS: ENOXAPARIN 30 MG/0.3 ML SYG SC (09:00)
[2017-08-10] MEDS: POLYETHYLENE GLYCOL 17 GM PACKET NGT (09:00)
[2017-08-10 09:17] LABS: ANISOCYTOSIS 1+ (0-0); BAND NEUTROPHILS #M 3.1 10^3/ul (0.0-0.6); BAND NEUTROPHILS % (M) 31 % (0-4); GIANT THROMBO% (M) 2 % (0-0); HYPOCHROMASIA 2+ (0-0); LYMPHOCYTES #M 0.1 10^3/ul (0.8-2.9); LYMPHOCYTES % (M) 1 % (15-51); MONOCYTE #M 0.6 10^3/ul (0.3-0.9); MONOCYTES % (M) 6 % (0-11); PLATELET ESTIMATE DECREASED; POLYCHROMASIA 1+ (0-0); SEG NEUT #M 6.5 10^3/ul (1.6-7.5); SEGMENTED NEUTROPHILS (M) % 62 % (39-77); SMUDGE%M 3 % (0-0)
[2017-08-10 09:49] LABS: Allen Test ACCEPTAB; Arterial Base Excess -1.7 mmol/L (-3.0-3); Arterial Blood Gas Oxygen Sat 85.7 mmHG (95.0-98.0); Arterial COHb 0.8 % (0.0-3.0); Arterial Fraction of Oxyhgb 84.3 % (93.0-99.0); Arterial HCO3 26.3 mmol/L (22.0-26.0); Arterial MetHb 0.8 % (0.0-1.5); Arterial Total Hemglobin 8.8 g/dl (12.0-18.0); Arterial pCO2 63.6 mmhg (35-45); Blood Gas High PEEP Setting 0 cmH2O; MODE VENT - PC; Site Right Radial
[2017-08-10] MEDS ORDERED: HEPARIN 5,000 UNIT/0.5 ML VIAL SC (11:00)
[2017-08-10 11:54] LABS: HEPATITIS B SURFACE ANTIGEN NEGATIVE (NEGATIVE)
[2017-08-10] MEDS ORDERED: LIDOCAINE 1% (MDV) 10 ML INJ (11:54)
[2017-08-10] MEDS ORDERED: HEPARIN 1000 UNITS/ML 10 ML INJ (11:56)
[2017-08-10 12:25] LABS: ANION GAP 13 (8-16); BLOOD UREA NITROGEN 43 mg/dl (7-20); CALCIUM 7.7 mg/dl (8.4-10.2); CARBON DIOXIDE 28 mmol/L (21-31); CHLORIDE 104 mmol/L (97-110); CREATININE 2.35 mg/dl (0.61-1.24); GLUCOSE 149 mg/dl (70-220); POTASSIUM 4.4 mmol/L (3.5-5.1); SODIUM 141 mmol/L (135-144)
[2017-08-10 16:51] LABS: IMMEDIATE SPIN CROSSMATCH 1 1
[2017-08-10] MEDS: ALBUMIN HUMAN 25% 100 ML IV (18:00)
[2017-08-10] MEDS: CEFEPIME 1GM/50 ML IVPB (21:05)
[2017-08-10 21:20] LABS: HEMATOCRIT 27.4 % (42.0-52.0); HEMOGLOBIN 9.5 g/dl (14.0-18.0)
[2017-08-11] MEDS: INSULIN ASPART [NOVOLOG] 3 ML PEN SC ×6 (01:00→21:00)
[2017-08-11] MEDS: ALBUTEROL HFA 8 GM INHALER INH ×6 (01:05→21:21)
[2017-08-11] MEDS: IPRATROPIUM (HFA) 12.9 GM INHALER INH ×6 (01:05→21:21)
[2017-08-11] MEDS: DEXTROSE 50% 50 ML SYRINGE IV ×2 (01:22→21:23)
[2017-08-11] MEDS: ACCU-CHEK XX (01:46)
[2017-08-11] MEDS: MIDAZOLAM (DRIP) 50 mg/50 mL 50 ML IV ×5 (02:21→19:21)
[2017-08-11] MEDS: OCULAR LUBRICANT 3.5 GM OPH OINT BOTH EYES ×4 (02:22→21:23)
[2017-08-11] MEDS: ARTIFICIAL TEARS 15 ML OPH BOTH EYES ×4 (02:22→21:23)
[2017-08-11] MEDS: PROPOFOL 100 ML IV ×2 (03:00→15:00)
[2017-08-11] MEDS: FENTAnyl (DRIP) 1000 mcg/100mL 100 ML IV ×3 (03:40→23:48)
[2017-08-11 05:52] LABS: WHITE BLOOD COUNT 7.3 10^3/ul (4.8-10.8)
[2017-08-11 05:52] LABS: ABNORMAL IP MESSAGE 1; HEMATOCRIT 26.2 % (42.0-52.0); HEMOGLOBIN 9.3 g/dl (14.0-18.0); MEAN CORPUSCULAR HEMOGLOBIN 29.4 pg (29.0-33.0); MEAN CORPUSCULAR HGB CONC 35.5 g/dl (32.0-37.0); MEAN CORPUSCULAR VOLUME 82.9 fl (82.0-101.0); MEAN PLATELET VOLUME 12.7 fl (7.4-10.4); NUCLEATED RED BLOOD CELLS% 0.3 /100WBC (0.0-0.0); PLATELET COUNT 90 10^3/UL (140-415); POSITIVE DIFF @See below; RED BLOOD COUNT 3.16 10^6/ul (4.70-6.10); RED CELL DISTRIBUTION WIDTH 18.5 % (11.5-14.5)
[2017-08-11 06:09] LABS: ANION GAP 18 (8-16); BLOOD UREA NITROGEN 48 mg/dl (7-20); CALCIUM 8.5 mg/dl (8.4-10.2); CARBON DIOXIDE 26 mmol/L (21-31); CHLORIDE 105 mmol/L (97-110); CREATININE 2.45 mg/dl (0.61-1.24); GLUCOSE 172 mg/dl (70-220); MAGNESIUM 1.8 mg/dl (1.7-2.5); PHOSPHORUS 3.3 mg/dl (2.5-4.9); POTASSIUM 3.8 mmol/L (3.5-5.1); SODIUM 145 mmol/L (135-144)
[2017-08-11 06:30] LABS: ADD MAN DIFF? YES
[2017-08-11] MEDS: PANTOPRAZOLE 40 MG INJ IV (06:49)
[2017-08-11 07:53] LABS: ANISOCYTOSIS 2+ (0-0); BAND NEUTROPHILS #M 0.8 10^3/ul (0.0-0.6); BAND NEUTROPHILS % (M) 12 % (0-4); ERYTHROBLAST% (NRBC) (M) 2 % (0-0); GIANT THROMBO% (M) 3 % (0-0); LYMPHOCYTES #M 0.2 10^3/ul (0.8-2.9); LYMPHOCYTES % (M) 4 % (15-51); MICROCYTOSIS 2+ (0-0); MONOCYTE #M 0.1 10^3/ul (0.3-0.9); MONOCYTES % (M) 2 % (0-11); PLATELET ESTIMATE DECREASED; POIKILOCYTOSIS 1+ (0-0); POLYCHROMASIA 1+ (0-0); REACTIVE LYMPHOCYTES #M 0.1 10^3/ul (0.0-0.0); REACTIVE LYMPHOCYTES% (M) 2 % (0-0); SEG NEUT #M 5.9 10^3/ul (1.6-7.5); SEGMENTED NEUTROPHILS (M) % 80 % (39-77); SMUDGE%M 13 % (0-0)
[2017-08-11] MEDS: DOCUSATE SODIUM 10 MG/ML (10ML CUP) NGT (08:18)
[2017-08-11] MEDS: NA PHOSPHATE/BIPHOS 133 ML ENEMA PR (08:18)
[2017-08-11] MEDS: POLYETHYLENE GLYCOL 17 GM PACKET NGT (08:18)
[2017-08-11 08:52] LABS: AADO2 Arterial 311.6 mmHg (7.0-24.0); Allen Test ACCEPTAB; Arterial Blood Gas Oxygen Sat 88.8 mmHG (95.0-98.0); Arterial Fraction of Oxyhgb 87.7 % (93.0-99.0); Arterial HCO3 24.7 mmol/L (22.0-26.0); Arterial MetHb 0.2 % (0.0-1.5); Arterial Total Hemglobin 10.6 g/dl (12.0-18.0); Arterial pCO2 51.4 mmhg (35-45); MODE VENT - PC; Site Right Radial
[2017-08-11] MEDS: ALBUMIN HUMAN 25% 100 ML IV (10:27)
[2017-08-11] MEDS ORDERED: HEPARIN 1000 UNITS/ML 10 ML INJ (12:25)
[2017-08-11] MEDS: HEPARIN 1000 UNITS/ML 10 ML INJ CATHETER (13:03)
[2017-08-11] MEDS: CEFEPIME 1GM/50 ML IVPB (21:23)
[2017-08-12] MEDS: INSULIN ASPART [NOVOLOG] 3 ML PEN SC ×6 (01:00→23:53)
[2017-08-12] MEDS: IPRATROPIUM (HFA) 12.9 GM INHALER INH ×5 (01:05→21:38)
[2017-08-12] MEDS: ALBUTEROL HFA 8 GM INHALER INH ×5 (01:05→21:39)
[2017-08-12] MEDS: MIDAZOLAM (DRIP) 50 mg/50 mL 50 ML IV ×5 (01:20→21:48)
[2017-08-12] MEDS: ACCU-CHEK XX (02:00)
[2017-08-12] MEDS: PROPOFOL 100 ML IV (03:00)
[2017-08-12] MEDS: OCULAR LUBRICANT 3.5 GM OPH OINT BOTH EYES ×4 (03:32→20:11)
[2017-08-12] MEDS: ARTIFICIAL TEARS 15 ML OPH BOTH EYES ×4 (03:32→20:11)
[2017-08-12] MEDS: VECURONIUM 100 MG in DEXTROSE 5% 100 ML IV (05:03)
[2017-08-12 05:32] LABS: ABNORMAL IP MESSAGE 1; HEMATOCRIT 25.2 % (42.0-52.0); HEMOGLOBIN 8.8 g/dl (14.0-18.0); MEAN CORPUSCULAR HEMOGLOBIN 28.9 pg (29.0-33.0); MEAN CORPUSCULAR HGB CONC 34.9 g/dl (32.0-37.0); MEAN CORPUSCULAR VOLUME 82.9 fl (82.0-101.0); MEAN PLATELET VOLUME 13.2 fl (7.4-10.4); NUCLEATED RED BLOOD CELLS% 0.6 /100WBC (0.0-0.0); PLATELET COUNT 84 10^3/UL (140-415); POSITIVE DIFF @See below; RED BLOOD COUNT 3.04 10^6/ul (4.70-6.10); RED CELL DISTRIBUTION WIDTH 18.6 % (11.5-14.5)
[2017-08-12 05:37] LABS: ADD MAN DIFF? YES
[2017-08-12] MEDS: PANTOPRAZOLE 40 MG INJ IV (06:04)
[2017-08-12 06:32] LABS: ANION GAP 21 (8-16); BLOOD UREA NITROGEN 45 mg/dl (7-20); CALCIUM 9.1 mg/dl (8.4-10.2); CARBON DIOXIDE 24 mmol/L (21-31); CHLORIDE 106 mmol/L (97-110); GLUCOSE 128 mg/dl (70-220); POTASSIUM 3.7 mmol/L (3.5-5.1); SODIUM 147 mmol/L (135-144)
[2017-08-12 07:58] LABS: AADO2 Arterial 367.3 mmHg (7.0-24.0); Allen Test ACCEPTAB; Arterial Base Excess -0.8 mmol/L (-3.0-3); Arterial COHb 0.5 % (0.0-3.0); Arterial Fraction of Oxyhgb 95.3 % (93.0-99.0); Arterial HCO3 24.2 mmol/L (22.0-26.0); Arterial MetHb 0.2 % (0.0-1.5); Arterial Total Hemglobin 9.2 g/dl (12.0-18.0); Arterial pCO2 41.5 mmhg (35-45); MODE VENT - PC; Site Right Radial
[2017-08-12 08:06] LABS: ANISOCYTOSIS 1+ (0-0); BAND NEUTROPHILS #M 1.5 10^3/ul (0.0-0.6); BAND NEUTROPHILS % (M) 15 % (0-4); EOSINOPHILS % (M) 6 % (0-7); ERYTHROBLAST% (NRBC) (M) 2 % (0-0); GIANT THROMBO% (M) 1 % (0-0); LYMPHOCYTES % (M) 10 % (15-51); MICROCYTOSIS 1+ (0-0); MONOCYTE #M 0.2 10^3/ul (0.3-0.9); MONOCYTES % (M) 2 % (0-11); PLATELET ESTIMATE DECREASED; SEG NEUT #M 6.9 10^3/ul (1.6-7.5); SEGMENTED NEUTROPHILS (M) % 67 % (39-77); SMUDGE%M 12 % (0-0)
[2017-08-12] MEDS: FENTAnyl (DRIP) 1000 mcg/100mL 100 ML IV ×2 (08:17→20:11)
[2017-08-12] MEDS: POLYETHYLENE GLYCOL 17 GM PACKET NGT (08:47)
[2017-08-12] MEDS: DOCUSATE SODIUM 10 MG/ML (10ML CUP) NGT (08:47)
[2017-08-12] MEDS: NA PHOSPHATE/BIPHOS 133 ML ENEMA PR (08:47)
[2017-08-12] MEDS: DEXTROSE 10% 250 ML IV (10:01)
[2017-08-12] MEDS: ALBUMIN HUMAN 25% 100 ML IV (10:11)
[2017-08-12] MEDS: PANTOPRAZOLE IV 80 MG in SOD CHLORIDE 0.9% 100 ML IV ×2 (14:20→22:54)
[2017-08-12] MEDS: CEFEPIME 1GM/50 ML IVPB (20:56)
[2017-08-12 21:13] LABS: INR 1.65; PROTIME 19.9 Sec (11.9-14.9); PT RATIO 1.6
[2017-08-12 21:14] LABS: PARTIAL THROMBOPLASTIN TIME 42.8 Sec (25.0-35.0)
[2017-08-13] MEDS: IPRATROPIUM (HFA) 12.9 GM INHALER INH ×4 (01:34→19:34)
[2017-08-13] MEDS: ALBUTEROL HFA 8 GM INHALER INH ×4 (01:35→19:34)
[2017-08-13] MEDS: ARTIFICIAL TEARS 15 ML OPH BOTH EYES ×4 (02:12→20:57)
[2017-08-13] MEDS: OCULAR LUBRICANT 3.5 GM OPH OINT BOTH EYES ×4 (02:12→20:57)
[2017-08-13] MEDS: ACCU-CHEK XX ×4 (02:15→20:58)
[2017-08-13] MEDS: MIDAZOLAM (DRIP) 50 mg/50 mL 50 ML IV ×4 (04:20→19:03)
[2017-08-13 05:11] LABS: WHITE BLOOD COUNT 8.6 10^3/ul (4.8-10.8)
[2017-08-13 05:11] LABS: ABNORMAL IP MESSAGE 1; HEMATOCRIT 24.1 % (42.0-52.0); HEMOGLOBIN 8.2 g/dl (14.0-18.0); MEAN CORPUSCULAR HEMOGLOBIN 28.7 pg (29.0-33.0); MEAN CORPUSCULAR VOLUME 84.3 fl (82.0-101.0); MEAN PLATELET VOLUME 13.2 fl (7.4-10.4); NUCLEATED RED BLOOD CELLS% 0.7 /100WBC (0.0-0.0); PLATELET COUNT 65 10^3/UL (140-415); POSITIVE DIFF @See below; RED BLOOD COUNT 2.86 10^6/ul (4.70-6.10); RED CELL DISTRIBUTION WIDTH 18.7 % (11.5-14.5)
[2017-08-13] MEDS: VECURONIUM 100 MG in DEXTROSE 5% 100 ML IV (05:11)
[2017-08-13 05:18] LABS: ADD MAN DIFF? YES
[2017-08-13 05:23] LABS: ALANINE AMINOTRANSFERASE 32 IU/L (13-69); ALBUMIN 3.1 g/dl (3.3-4.9); ALKALINE PHOSPHATASE 80 IU/L (42-121); ASPARTATE AMINO TRANSFERASE 43 IU/L (15-46); TOTAL PROTEIN 4.9 g/dl (6.1-8.1)
[2017-08-13 05:30] LABS: ANION GAP 17 (8-16); BLOOD UREA NITROGEN 36 mg/dl (7-20); CALCIUM 9.1 mg/dl (8.4-10.2); CARBON DIOXIDE 25 mmol/L (21-31); CHLORIDE 107 mmol/L (97-110); CREATININE 2.25 mg/dl (0.61-1.24); GLUCOSE 104 mg/dl (70-220); MAGNESIUM 1.9 mg/dl (1.7-2.5); PHOSPHORUS 2.7 mg/dl (2.5-4.9); POTASSIUM 3.8 mmol/L (3.5-5.1); SODIUM 145 mmol/L (135-144)
[2017-08-13 05:37] LABS: INR 1.54; PROTIME 18.8 Sec (11.9-14.9); PT RATIO 1.5
[2017-08-13] MEDS: INSULIN ASPART [NOVOLOG] 3 ML PEN SC ×4 (06:00→23:59)
[2017-08-13] MEDS: DEXTROSE 10% 250 ML IV ×2 (06:38→22:43)
[2017-08-13] MEDS: FENTAnyl (DRIP) 1000 mcg/100mL 100 ML IV ×2 (06:39→21:08)
[2017-08-13 08:36] LABS: AADO2 Arterial 373.6 mmHg (7.0-24.0); Allen Test ACCEPTAB; Arterial Base Excess -3.9 mmol/L (-3.0-3); Arterial Blood Gas Oxygen Sat 92.9 mmHG (95.0-98.0); Arterial COHb 1.5 % (0.0-3.0); Arterial Fraction of Oxyhgb 91.1 % (93.0-99.0); Arterial HCO3 22.9 mmol/L (22.0-26.0); Arterial MetHb 0.4 % (0.0-1.5); Arterial Total Hemglobin 8.6 g/dl (12.0-18.0); Arterial pCO2 50.4 mmhg (35-45); MODE VENT - PC; Site Right Radial
[2017-08-13] MEDS: NA PHOSPHATE/BIPHOS 133 ML ENEMA PR (09:00)
[2017-08-13] MEDS: DOCUSATE SODIUM 10 MG/ML (10ML CUP) NGT (09:00)
[2017-08-13] MEDS: PANTOPRAZOLE IV 80 MG in SOD CHLORIDE 0.9% 100 ML IV ×2 (10:13→20:58)
[2017-08-13] MEDS ORDERED: COLLAGENASE 30 GM TUBE TOP (11:00)
[2017-08-13] MEDS ORDERED: PENDING SANTYL ORDER FOR WOUND CARE XX (11:00)
[2017-08-13] MEDS: COLLAGENASE 30 GM TUBE TOP (11:30)
[2017-08-13] MEDS: POLYETHYLENE GLYCOL 17 GM PACKET NGT (11:54)
[2017-08-13 12:51] LABS: PLATELET COUNT 71 10^3/UL (140-415)
[2017-08-13 13:08] LABS: INR 1.47; PROTIME 18.1 Sec (11.9-14.9); PT RATIO 1.4
[2017-08-13 13:32] LABS: D-DIMER > 10000.00 ng/ml (<460); FIBRIN SPLIT PRODUCT <10 ug/ml (<10)
[2017-08-13 13:43] LABS: ANISOCYTOSIS 3+ (0-0); BAND NEUTROPHILS #M 1.8 10^3/ul (0.0-0.6); BAND NEUTROPHILS % (M) 22 % (0-4); EOSINOPHILS % (M) 8 % (0-7); ERYTHROBLAST% (NRBC) (M) 5 % (0-0); GIANT THROMBO% (M) 17 % (0-0); LYMPHOCYTES #M 0.8 10^3/ul (0.8-2.9); LYMPHOCYTES % (M) 10 % (15-51); MONOCYTE #M 0.2 10^3/ul (0.3-0.9); MONOCYTES % (M) 3 % (0-11); PLATELET ESTIMATE DECREASED; POLYCHROMASIA 3+ (0-0); SEG NEUT #M 5.1 10^3/ul (1.6-7.5); SEGMENTED NEUTROPHILS (M) % 58 % (39-77); SMUDGE%M 24 % (0-0)
[2017-08-13] MEDS: TPN 1,000 ML IV (14:43)
[2017-08-13 15:01] LABS: TRIGLYCERIDES 152 mg/dl (0-149)
[2017-08-13] MEDS: ALTEPLASE (CATHFLO) 2 MG INJ CATHETER (16:25)
[2017-08-13 17:30] LABS: LACTATE DEHYDROGENASE 1712 IU/L (313-618)
[2017-08-13] MEDS: CEFEPIME 1GM/50 ML IVPB (20:57)
[2017-08-13] MEDS: LACTULOSE 30ML CUP NGT (21:26)
[2017-08-14] MEDS: IPRATROPIUM (HFA) 12.9 GM INHALER INH ×4 (01:15→20:09)
[2017-08-14] MEDS: ALBUTEROL HFA 8 GM INHALER INH ×4 (01:15→20:09)
[2017-08-14] MEDS: ACCU-CHEK XX ×7 (01:54→21:38)
[2017-08-14] MEDS: OCULAR LUBRICANT 3.5 GM OPH OINT BOTH EYES ×4 (02:57→21:33)
[2017-08-14] MEDS: ARTIFICIAL TEARS 15 ML OPH BOTH EYES ×4 (02:57→21:33)
[2017-08-14 05:15] LABS: ABNORMAL IP MESSAGE 1; HEMATOCRIT 25.3 % (42.0-52.0); HEMOGLOBIN 8.7 g/dl (14.0-18.0); MEAN CORPUSCULAR HEMOGLOBIN 28.5 pg (29.0-33.0); MEAN CORPUSCULAR HGB CONC 34.4 g/dl (32.0-37.0); POSITIVE DIFF @See below; RED BLOOD COUNT 3.05 10^6/ul (4.70-6.10); RED CELL DISTRIBUTION WIDTH 18.8 % (11.5-14.5)
[2017-08-14 05:15] LABS: WHITE BLOOD COUNT 11.3 10^3/ul (4.8-10.8)
[2017-08-14 05:33] LABS: ANION GAP 18 (8-16); BLOOD UREA NITROGEN 20 mg/dl (7-20); CALCIUM 9.3 mg/dl (8.4-10.2); CARBON DIOXIDE 26 mmol/L (21-31); CHLORIDE 105 mmol/L (97-110); CREATININE 1.41 mg/dl (0.61-1.24); GLUCOSE 130 mg/dl (70-220); MAGNESIUM 1.9 mg/dl (1.7-2.5); PHOSPHORUS 1.6 mg/dl (2.5-4.9); POTASSIUM 3.5 mmol/L (3.5-5.1); SODIUM 145 mmol/L (135-144)
[2017-08-14 05:45] LABS: LACTIC ACID 1.2 mmol/L (0.5-2.0)
[2017-08-14 05:49] LABS: INR 1.43; PROTIME 17.7 Sec (11.9-14.9); PT RATIO 1.4
[2017-08-14 05:50] LABS: PARTIAL THROMBOPLASTIN TIME 37.7 Sec (25.0-35.0); THROMBIN TIME 14.1 SEC (13.8-19.1)
[2017-08-14] MEDS: INSULIN ASPART [NOVOLOG] 3 ML PEN SC ×3 (05:55→17:34)
[2017-08-14] MEDS: PANTOPRAZOLE IV 80 MG in SOD CHLORIDE 0.9% 100 ML IV ×2 (06:10→15:15)
[2017-08-14 06:17] LABS: ADD MAN DIFF? YES; PLATELET COUNT 96 10^3/UL (140-415)
[2017-08-14 06:18] LABS: PLATELET COUNT 96 10^3/UL (140-415)
[2017-08-14 07:41] LABS: ANISOCYTOSIS 1+ (0-0); BAND NEUTROPHILS #M 1.5 10^3/ul (0.0-0.6); BAND NEUTROPHILS % (M) 14 % (0-4); EOSINOPHILS % (M) 1 % (0-7); ERYTHROBLAST% (NRBC) (M) 2 % (0-0); GIANT THROMBO% (M) 9 % (0-0); HYPOCHROMASIA 3+ (0-0); LYMPHOCYTES #M 0.6 10^3/ul (0.8-2.9); LYMPHOCYTES % (M) 6 % (15-51); MONOCYTE #M 0.7 10^3/ul (0.3-0.9); MONOCYTES % (M) 7 % (0-11); PLATELET ESTIMATE DECREASED; POLYCHROMASIA 3+ (0-0); SEG NEUT #M 8.3 10^3/ul (1.6-7.5); SEGMENTED NEUTROPHILS (M) % 72 % (39-77); SMUDGE%M 7 % (0-0)
[2017-08-14 07:58] LABS: AADO2 Arterial 423.1 mmHg (7.0-24.0); Allen Test ACCEPTAB; Arterial Base Excess -0.6 mmol/L (-3.0-3); Arterial Blood Gas Oxygen Sat 92.7 mmHG (95.0-98.0); Arterial COHb 1.5 % (0.0-3.0); Arterial HCO3 25.1 mmol/L (22.0-26.0); Arterial MetHb 0.3 % (0.0-1.5); Arterial Total Hemglobin 9.7 g/dl (12.0-18.0); Blood Gas Low PEEP Setting 0 cmH2O; MODE VENT - PC; Site Left Radial
[2017-08-14] MEDS: COLLAGENASE 30 GM TUBE TOP (09:00)
[2017-08-14] MEDS: DOCUSATE SODIUM 10 MG/ML (10ML CUP) NGT (09:00)
[2017-08-14] MEDS ORDERED: LEVETIRACETAM 500 MG (PMX) 100 ML IVPB (09:00)
[2017-08-14] MEDS: POTASSIUM PHOSPHATE 20 MEQ in SOD CHLORIDE 0.9% 250 ML IVPB (09:20)
[2017-08-14] MEDS: FENTAnyl (DRIP) 1000 mcg/100mL 100 ML IV (09:21)
[2017-08-14] MEDS: LEVETIRACETAM IV 250 MG in SOD CHLORIDE 0.9% 100 ML IV (09:22)
[2017-08-14] MEDS: TPN 500 ML IV (15:15)
[2017-08-14] MEDS: CEFEPIME 1GM/50 ML IVPB (21:33)
[2017-08-14] MEDS: BALSAM PERU/CASTOR OIL 60 GM TUBE TOP (21:33)
[2017-08-15] MEDS: LEVETIRACETAM IV 250 MG in SOD CHLORIDE 0.9% 100 ML IV ×3 (00:16→22:34)
[2017-08-15] MEDS: ALBUTEROL HFA 8 GM INHALER INH ×5 (01:40→20:07)
[2017-08-15] MEDS: IPRATROPIUM (HFA) 12.9 GM INHALER INH ×5 (01:40→20:07)
[2017-08-15] MEDS: PANTOPRAZOLE IV 80 MG in SOD CHLORIDE 0.9% 100 ML IV ×3 (01:56→21:44)
[2017-08-15] MEDS: ACCU-CHEK XX (01:57)
[2017-08-15] MEDS: ARTIFICIAL TEARS 15 ML OPH BOTH EYES ×4 (04:15→21:44)
[2017-08-15] MEDS: OCULAR LUBRICANT 3.5 GM OPH OINT BOTH EYES ×4 (04:16→21:43)
[2017-08-15 05:20] LABS: ADD MAN DIFF? NO
[2017-08-15 05:31] LABS: ABNORMAL IP MESSAGE 1; BASOPHILS % 0.3 % (0.0-2.0); EOSINOPHILS # 0.9 10^3/ul (0.0-0.5); HEMOGLOBIN 8.4 g/dl (14.0-18.0); LYMPHOCYTES # 0.6 10^3/ul (0.8-2.9); LYMPHOCYTES % 4.7 % (15.0-51.0); MEAN CORPUSCULAR HEMOGLOBIN 28.8 pg (29.0-33.0); MEAN CORPUSCULAR HGB CONC 33.6 g/dl (32.0-37.0); MEAN CORPUSCULAR VOLUME 85.6 fl (82.0-101.0); MEAN PLATELET VOLUME 13.5 fl (7.4-10.4); MONOCYTE # 1.2 10^3/ul (0.3-0.9); MONOCYTES % 9.8 % (0.0-11.0); NEUTROPHIL # 8.8 10^3/ul (1.6-7.5); NEUTROPHILS % 71.3 % (39.0-77.0); NUCLEATED RED BLOOD CELLS # 0.4 10^3/ul (0.0-0.0); NUCLEATED RED BLOOD CELLS% 2.8 /100WBC (0.0-0.0); PLATELET COUNT 91 10^3/UL (140-415); POSITIVE DIFF @See below; RED BLOOD COUNT 2.92 10^6/ul (4.70-6.10); RED CELL DISTRIBUTION WIDTH 19.9 % (11.5-14.5)
[2017-08-15 05:31] LABS: WHITE BLOOD COUNT 12.3 10^3/ul (4.8-10.8)
[2017-08-15 05:53] LABS: ANION GAP 17 (8-16); BLOOD UREA NITROGEN 27 mg/dl (7-20); CALCIUM 8.8 mg/dl (8.4-10.2); CARBON DIOXIDE 26 mmol/L (21-31); CHLORIDE 107 mmol/L (97-110); CREATININE 2.04 mg/dl (0.61-1.24); GLUCOSE 134 mg/dl (70-220); MAGNESIUM 1.8 mg/dl (1.7-2.5); POTASSIUM 3.6 mmol/L (3.5-5.1); SODIUM 146 mmol/L (135-144)
[2017-08-15] MEDS: INSULIN ASPART [NOVOLOG] 3 ML PEN SC ×5 (06:00→23:39)
[2017-08-15] MEDS: DOCUSATE SODIUM 10 MG/ML (10ML CUP) NGT (08:11)
[2017-08-15] MEDS: COLLAGENASE 30 GM TUBE TOP (08:15)
[2017-08-15] MEDS: BALSAM PERU/CASTOR OIL 60 GM TUBE TOP (08:16)
[2017-08-15 08:23] LABS: AADO2 Arterial 409.2 mmHg (7.0-24.0); Allen Test ACCEPTAB; Arterial Base Excess -5.4 mmol/L (-3.0-3); Arterial Blood Gas Oxygen Sat 95.1 mmHG (95.0-98.0); Arterial COHb 1.5 % (0.0-3.0); Arterial Fraction of Oxyhgb 93.6 % (93.0-99.0); Arterial HCO3 24.1 mmol/L (22.0-26.0); Arterial MetHb 0.1 % (0.0-1.5); Arterial Total Hemglobin 9.1 g/dl (12.0-18.0); Arterial pCO2 72.5 mmhg (35-45); Blood Gas Low PEEP Setting 0 cmH2O; MODE VENT - PC; Site Right Radial
[2017-08-15] MEDS: TPN 500 ML IV (15:31)
[2017-08-15] MEDS: TPN 1,000 ML IV ×2 (16:30→18:16)
[2017-08-15] MEDS: ALBUMIN HUMAN 25% 100 ML IV (17:05)
[2017-08-15] MEDS: FENTAnyl (DRIP) 1000 mcg/100mL 100 ML IV (17:20)
[2017-08-15] MEDS: CEFEPIME 1GM/50 ML IVPB (21:44)
[2017-08-15] MEDS: MIDAZOLAM (DRIP) 50 mg/50 mL 50 ML IV (21:56)
[2017-08-16] MEDS: MIDAZOLAM (DRIP) 50 mg/50 mL 50 ML IV ×5 (01:06→21:57)
[2017-08-16] MEDS: ACCU-CHEK XX (01:06)
[2017-08-16] MEDS: ALBUTEROL HFA 8 GM INHALER INH ×4 (01:28→19:23)
[2017-08-16] MEDS: IPRATROPIUM (HFA) 12.9 GM INHALER INH ×4 (01:28→19:23)
[2017-08-16] MEDS: ARTIFICIAL TEARS 15 ML OPH BOTH EYES ×4 (02:40→21:02)
[2017-08-16] MEDS: OCULAR LUBRICANT 3.5 GM OPH OINT BOTH EYES ×4 (02:40→21:02)
[2017-08-16] MEDS: INSULIN ASPART [NOVOLOG] 3 ML PEN SC ×4 (05:27→23:41)
[2017-08-16] MEDS: PANTOPRAZOLE IV 80 MG in SOD CHLORIDE 0.9% 100 ML IV ×4 (05:28→21:56)
[2017-08-16 05:44] LABS: ABNORMAL IP MESSAGE 1; MEAN CORPUSCULAR HEMOGLOBIN 28.8 pg (29.0-33.0); MEAN CORPUSCULAR HGB CONC 33.5 g/dl (32.0-37.0); MEAN CORPUSCULAR VOLUME 85.8 fl (82.0-101.0); NUCLEATED RED BLOOD CELLS% 6.6 /100WBC (0.0-0.0); PLATELET COUNT 74 10^3/UL (140-415); POSITIVE DIFF @See below; RED BLOOD COUNT 2.33 10^6/ul (4.70-6.10); RED CELL DISTRIBUTION WIDTH 20.3 % (11.5-14.5)
[2017-08-16 05:44] LABS: WHITE BLOOD COUNT 13.8 10^3/ul (4.8-10.8)
[2017-08-16] MEDS: FENTAnyl (DRIP) 1000 mcg/100mL 100 ML IV ×2 (05:58→15:25)
[2017-08-16] MEDS ORDERED: PROPOFOL 100 ML (06:05)
[2017-08-16 06:15] LABS: ANION GAP 18 (8-16); BLOOD UREA NITROGEN 16 mg/dl (7-20); CALCIUM 8.7 mg/dl (8.4-10.2); CARBON DIOXIDE 24 mmol/L (21-31); CHLORIDE 108 mmol/L (97-110); CREATININE 1.02 mg/dl (0.61-1.24); GLUCOSE 121 mg/dl (70-220); MAGNESIUM 1.7 mg/dl (1.7-2.5); PHOSPHORUS 1.3 mg/dl (2.5-4.9); POTASSIUM 3.5 mmol/L (3.5-5.1); SODIUM 146 mmol/L (135-144)
[2017-08-16] MEDS: PROPOFOL 100 ML IV ×2 (06:16→18:30)
[2017-08-16 06:35] LABS: ADD MAN DIFF? YES; HEMOGLOBIN 6.7 g/dl (14.0-18.0)
[2017-08-16 07:13] LABS: ANISOCYTOSIS 1+ (0-0); BAND NEUTROPHILS % (M) 15 % (0-4); BASOPHIL #M 0.1 10^3/ul (0.0-0.0); BASOPHILS % (M) 1 % (0-2); EOSINOPHILS % (M) 14 % (0-7); ERYTHROBLAST% (NRBC) (M) 14 % (0-0); GIANT THROMBO% (M) 1 % (0-0); HYPOCHROMASIA 3+ (0-0); LYMPHOCYTES #M 0.2 10^3/ul (0.8-2.9); LYMPHOCYTES % (M) 2 % (15-51); METAMYELOCYTES #M 0.1 10^3/ul (0.0-0.0); METAMYELOCYTES %M 1 % (0-0); MICROCYTOSIS 1+ (0-0); MONOCYTE #M 0.2 10^3/ul (0.3-0.9); MONOCYTES % (M) 2 % (0-11); MYELOCYTES #M 0.2 10^3/ul (0.0-0.0); MYELOCYTES % (M) 2 % (0-0); PLATELET ESTIMATE DECREASED; POLYCHROMASIA 1+ (0-0); PROMYELOCYTES #M 0.1 10^3/ul (0-0); PROMYELOCYTES % (M) 1 % (0-0); SEG NEUT #M 8.8 10^3/ul (1.6-7.5); SEGMENTED NEUTROPHILS (M) % 62 % (39-77); SMUDGE%M 3 % (0-0); TARGET CELLS 2+ (0-0)
[2017-08-16] MEDS: COLLAGENASE 30 GM TUBE TOP (08:17)
[2017-08-16] MEDS: DOCUSATE SODIUM 10 MG/ML (10ML CUP) NGT (08:17)
[2017-08-16] MEDS: BALSAM PERU/CASTOR OIL 60 GM TUBE TOP (08:17)
[2017-08-16 08:21] LABS: Allen Test ACCEPTAB; Arterial Base Excess -3.5 mmol/L (-3.0-3); Arterial Blood Gas Oxygen Sat 96.5 mmHG (95.0-98.0); Arterial COHb 1.4 % (0.0-3.0); Arterial Fraction of Oxyhgb 95.1 % (93.0-99.0); Arterial HCO3 24.3 mmol/L (22.0-26.0); Arterial MetHb 0.1 % (0.0-1.5); Arterial Total Hemglobin 9.9 g/dl (12.0-18.0); Arterial pCO2 58.9 mmhg (35-45); MODE VENT - PC; Site Right Radial
[2017-08-16] MEDS: LEVETIRACETAM IV 250 MG in SOD CHLORIDE 0.9% 100 ML IV (09:26)
[2017-08-16] MEDS: POTASSIUM PHOSPHATE 20 MEQ in SOD CHLORIDE 0.9% 250 ML IVPB (09:51)
[2017-08-16 13:56] LABS: IMMEDIATE SPIN CROSSMATCH 1 1
[2017-08-16] MEDS: TPN 500 ML IV (15:55)
[2017-08-16] MEDS: CEFEPIME 1GM/50 ML IVPB (21:01)
[2017-08-17] MEDS: IPRATROPIUM (HFA) 12.9 GM INHALER INH ×4 (01:35→19:36)
[2017-08-17] MEDS: ALBUTEROL HFA 8 GM INHALER INH ×4 (01:36→19:36)
[2017-08-17] MEDS: ACCU-CHEK XX (02:00)
[2017-08-17] MEDS: ARTIFICIAL TEARS 15 ML OPH BOTH EYES ×4 (02:16→20:26)
[2017-08-17] MEDS: OCULAR LUBRICANT 3.5 GM OPH OINT BOTH EYES ×4 (02:16→20:26)
[2017-08-17] MEDS: FENTAnyl (DRIP) 1000 mcg/100mL 100 ML IV ×2 (02:19→20:24)
[2017-08-17] MEDS: MIDAZOLAM (DRIP) 50 mg/50 mL 50 ML IV ×2 (03:31→18:01)
[2017-08-17] MEDS: PANTOPRAZOLE IV 80 MG in SOD CHLORIDE 0.9% 100 ML IV ×3 (04:58→20:22)
[2017-08-17 05:27] LABS: ABNORMAL IP MESSAGE 1; HEMATOCRIT 28.5 % (42.0-52.0); HEMOGLOBIN 9.5 g/dl (14.0-18.0); MEAN CORPUSCULAR HEMOGLOBIN 29.2 pg (29.0-33.0); MEAN CORPUSCULAR HGB CONC 33.3 g/dl (32.0-37.0); MEAN CORPUSCULAR VOLUME 87.7 fl (82.0-101.0); NUCLEATED RED BLOOD CELLS% 7.1 /100WBC (0.0-0.0); POSITIVE DIFF @See below; RED BLOOD COUNT 3.25 10^6/ul (4.70-6.10); RED CELL DISTRIBUTION WIDTH 19.6 % (11.5-14.5)
[2017-08-17 05:27] LABS: WHITE BLOOD COUNT 15.8 10^3/ul (4.8-10.8)
[2017-08-17 05:30] LABS: PLATELET COUNT 91 10^3/UL (140-415)
[2017-08-17 05:33] LABS: ADD MAN DIFF? YES
[2017-08-17] MEDS: INSULIN ASPART [NOVOLOG] 3 ML PEN SC ×3 (05:36→22:00)
[2017-08-17] MEDS: PROPOFOL 100 ML IV ×2 (05:37→17:31)
[2017-08-17 05:47] LABS: ANION GAP 18 (8-16); BLOOD UREA NITROGEN 31 mg/dl (7-20); CALCIUM 8.7 mg/dl (8.4-10.2); CARBON DIOXIDE 21 mmol/L (21-31); CHLORIDE 109 mmol/L (97-110); CREATININE 1.85 mg/dl (0.61-1.24); GLUCOSE 101 mg/dl (70-220); MAGNESIUM 1.7 mg/dl (1.7-2.5); PHOSPHORUS 5.5 mg/dl (2.5-4.9); POTASSIUM 4.7 mmol/L (3.5-5.1); SODIUM 143 mmol/L (135-144)
[2017-08-17 07:58] LABS: ANISOCYTOSIS 1+ (0-0); BAND NEUTROPHILS #M 2.3 10^3/ul (0.0-0.6); BAND NEUTROPHILS % (M) 15 % (0-4); BASOPHIL #M 0.1 10^3/ul (0.0-0.0); BASOPHILS % (M) 1 % (0-2); EOSINOPHILS % (M) 10 % (0-7); ERYTHROBLAST% (NRBC) (M) 18 % (0-0); GIANT THROMBO% (M) 2 % (0-0); LYMPHOCYTES #M 0.7 10^3/ul (0.8-2.9); LYMPHOCYTES % (M) 5 % (15-51); MONOCYTE #M 0.1 10^3/ul (0.3-0.9); MONOCYTES % (M) 1 % (0-11); MYELOCYTES #M 0.4 10^3/ul (0.0-0.0); MYELOCYTES % (M) 3 % (0-0); PLATELET ESTIMATE DECREASED; POLYCHROMASIA 2+ (0-0); PROMYELOCYTES #M 0.3 10^3/ul (0-0); PROMYELOCYTES % (M) 2 % (0-0); SEG NEUT #M 10.3 10^3/ul (1.6-7.5); SEGMENTED NEUTROPHILS (M) % 63 % (39-77); SMUDGE%M 4 % (0-0)
[2017-08-17] MEDS: DOCUSATE SODIUM 10 MG/ML (10ML CUP) NGT (08:07)
[2017-08-17] MEDS: COLLAGENASE 30 GM TUBE TOP (08:07)
[2017-08-17] MEDS: BALSAM PERU/CASTOR OIL 60 GM TUBE TOP (08:07)
[2017-08-17 08:47] LABS: Allen Test ACCEPTAB; Arterial Blood Gas Oxygen Sat 87.5 mmHG (95.0-98.0); Arterial COHb 1.6 % (0.0-3.0); Arterial Fraction of Oxyhgb 85.8 % (93.0-99.0); Arterial HCO3 21.5 mmol/L (22.0-26.0); Arterial MetHb 0.3 % (0.0-1.5); Arterial Total Hemglobin 11.1 g/dl (12.0-18.0); Arterial pCO2 72.8 mmhg (35-45); Blood Gas Low PEEP Setting 0 cmH2O; MODE VENT - PC; Site Right Radial
[2017-08-17] MEDS: LEVETIRACETAM IV 250 MG in SOD CHLORIDE 0.9% 100 ML IV (09:44)
[2017-08-17] MEDS: TPN 500 ML IV (16:18)
[2017-08-17] MEDS: CEFEPIME 1GM/50 ML IVPB (20:22)
[2017-08-18] MEDS: LEVETIRACETAM IV 250 MG in SOD CHLORIDE 0.9% 100 ML IV (00:26)
[2017-08-18] MEDS: IPRATROPIUM (HFA) 12.9 GM INHALER INH (01:27)
[2017-08-18] MEDS: ALBUTEROL HFA 8 GM INHALER INH (01:28)
[2017-08-18] MEDS: ACCU-CHEK XX (02:00)
[2017-08-18] MEDS: OCULAR LUBRICANT 3.5 GM OPH OINT BOTH EYES ×2 (03:58→09:38)
[2017-08-18] MEDS: ARTIFICIAL TEARS 15 ML OPH BOTH EYES (03:58)
[2017-08-18] MEDS: MIDAZOLAM (DRIP) 50 mg/50 mL 50 ML IV (03:59)
[2017-08-18] MEDS: INSULIN ASPART [NOVOLOG] 3 ML PEN SC (06:00)
[2017-08-18 06:14] LABS: ANION GAP 16 (8-16); BLOOD UREA NITROGEN 26 mg/dl (7-20); CALCIUM 8.8 mg/dl (8.4-10.2); CARBON DIOXIDE 26 mmol/L (21-31); CHLORIDE 104 mmol/L (97-110); CREATININE 1.49 mg/dl (0.61-1.24); GLUCOSE 124 mg/dl (70-220); MAGNESIUM 1.8 mg/dl (1.7-2.5); PHOSPHORUS 2.9 mg/dl (2.5-4.9); POTASSIUM 4.4 mmol/L (3.5-5.1); SODIUM 142 mmol/L (135-144)
[2017-08-18] MEDS: PANTOPRAZOLE IV 80 MG in SOD CHLORIDE 0.9% 100 ML IV (06:21)
[2017-08-18] MEDS: PROPOFOL 100 ML IV (06:30)
[2017-08-18 10:22] LABS: HEMOGLOBIN 8.4 g/dl (14.0-18.0); MEAN CORPUSCULAR HEMOGLOBIN 28.8 pg (29.0-33.0); MEAN CORPUSCULAR HGB CONC 33.6 g/dl (32.0-37.0); MEAN CORPUSCULAR VOLUME 85.6 fl (82.0-101.0); RED BLOOD COUNT 2.92 10^6/ul (4.70-6.10)
[2017-08-18 10:22] LABS: WHITE BLOOD COUNT 14.8 10^3/ul (4.8-10.8)
[2017-08-18 10:23] LABS: ADD MAN DIFF? YES; PLATELET COUNT 81 10^3/UL (140-415); RED CELL DISTRIBUTION WIDTH 19.4 % (11.5-14.5)
[2017-08-18] MEDS: morphine (DRIP) 100 MG/100 ML 100 ML IV (10:29)
== END 2017-08-18 11:27 | disposition expired | DRG 870 ==
LOC: E/R 21:01 → ICU 07-31 01:14
PROVIDERS: Pediatrics
PROC: 5A1955Z Respiratory Ventilation, Greater than 96 Consecutive Hours (ICD-10-PCS; principal; 2017-07-31)
PROC: 0BH17EZ Insertion of Endotracheal Airway into Trachea, Via Natural or Artificial Opening (ICD-10-PCS; 2017-07-31)
PROC: 02H633Z Insertion of Infusion Device into Right Atrium, Percutaneous Approach (ICD-10-PCS; 2017-08-07)
PROC: 06HM33Z Insertion of Infusion Device into Right Femoral Vein, Percutaneous Approach (ICD-10-PCS; 2017-08-10)
PROC: 5A1D70Z Performance of Urinary Filtration, Intermittent, Less than 6 Hours Per Day (ICD-10-PCS; 2017-08-10)
PROC: 30233N1 Transfusion of Nonautologous Red Blood Cells into Peripheral Vein, Percutaneous Approach (ICD-10-PCS; 2017-08-10)
DX: A41.9 Sepsis, unspecified organism (principal); R65.21 Severe sepsis with septic shock; I50.31 Acute diastolic (congestive) heart failure; G92 Toxic encephalopathy; J96.01 Acute respiratory failure with hypoxia; N17.0 Acute kidney failure with tubular necrosis; J96.02 Acute respiratory failure with hypercapnia; J69.0 Pneumonitis due to inhalation of food and vomit; E87.0 Hyperosmolality and hypernatremia; N39.0 Urinary tract infection, site not specified; E87.2 Acidosis; R45.851 Suicidal ideations; D61.818 Other pancytopenia; E87.4 Mixed disorder of acid-base balance; F10.129 Alcohol abuse with intoxication, unspecified; Y90.8 Blood alcohol level of 240 mg/100 ml or more; B96.20 Unspecified Escherichia coli [E. coli] as the cause of diseases classified elsewhere; D64.9 Anemia, unspecified; E83.42 Hypomagnesemia; E83.39 Other disorders of phosphorus metabolism; E87.70 Fluid overload, unspecified; E83.51 Hypocalcemia; E87.6 Hypokalemia; F32.9 Major depressive disorder, single episode, unspecified; H57.04 Mydriasis; Q77.4 Achondroplasia; R34 Anuria and oliguria; R56.9 Unspecified convulsions; Z66 Do not resuscitate; Z91.5 Personal history of self-harm
CPT/HCPCS: 31500; 36415; 36430; 36569; 36600; 71045; 74018; 76700; 76937; 80048; 80053; 80061; 80076; 80202; 80306; 80307; 81001; 81003; 82043; 82330; 82565; 82607; 82746; 82803; 82962; 83036; 83540; 83605; 83615; 83735; 84100; 84134; 84155; 84300; 84425; 84443; 84478; 84520; 85014; 85018; 85025; 85049; 85362; 85378; 85384; 85610; 85670; 85730; 86644; 86850; 86900; 86901; 86920; 87070; 87081; 87086; 87340; 89220; 90935; 93005; 93306; 94002; 94003; 94640; 94770; 95819; 96365; 96366; 96375; 99285-25